=== PATIENT | male | born 1965 | race Caucasian/White ===

== ENCOUNTER 2024-06-21 10:28 | Inpatient (IN) | payer OTHER, SELFPAY ==
[2024-06-21] VITALS (8 sets, daily range): BP systolic 131–161; BP diastolic 78–116; PULSE 84–139; RESP 12–20; TEMP 36.5–37.1; O2SAT 93–98; BMI 30.9
--- NOTE | ~2024-06-21 | XR_ITS ---
EXAMINATION: XR CHEST CLINICAL INFORMATION: dyspnea COMPARISON: None available. TECHNIQUE: Frontal view of the chest was obtained. FINDINGS: Prominence of the interstitial markings. Cardiomediastinal silhouette is enlarged. No pneumothorax. No gross pleural effusion. Multilevel thoracic spondylosis no fully evaluated. Degenerative changes in the left shoulder. XR/XR chest 1V IMPRESSION: Pulmonary edema, mild in the correct clinical settings. Superimposed acute small airway disease cannot be excluded. Cardiomegaly versus pericardial effusion. Electronically signed by: Jacek Ivey MD 06/21/2024 12:42 PM EDT
--- NOTE | ~2024-06-21 | US_ITS ---
EXAMINATION: US LOWER EXTREMITY VEINS BILATERAL HISTORY: new onset Afib dyspnea swelling COMPARISON: There are no prior studies for comparison. TECHNIQUE: Duplex and color Doppler sonographic examination of the deep venous system of the bilateral lower extremities was performed. FINDINGS: The right common femoral, superficial femoral, and popliteal veins are patent demonstrating normal compressibility, spontaneous flow, and augmentation. There is a normal color and spectral Doppler waveform appearance of the visualized deep venous system above the knee. The posterior tibial and peroneal veins are patent. The left common femoral, superficial femoral, and popliteal veins are patent demonstrating normal compressibility, spontaneous flow, and augmentation. There is a normal color and spectral Doppler waveform appearance of the visualized deep venous system above the knee. The posterior tibial and peroneal veins are patent. US/US venous duplex LE BI IMPRESSION: No evidence of acute DVT in the bilateral lower extremities. Electronically signed by: Sonido Pastor MD 06/21/2024 01:29 PM EDT
--- NOTE | 2024-06-21 10:39 | ECG_ITS ---
Test Reason : SOB Blood Pressure : */* mmHG Vent. Rate : 121 BPM Atrial Rate : * BPM P-R Int : * ms QRS Dur : 148 ms QT Int : 318 ms P-R-T Axes : * 17 179 degrees QTcB Int : 451 ms Atrial fibrillation with rapid ventricular response Left bundle branch block Abnormal ECG No previous ECGs available Referred By: Generic ED Physician Electronically Signed By: Myles Willams
[2024-06-21 11:07] LABS: Hematocrit 47.4 % (42.0-52.0); Hemoglobin 16.5 g/dl (14.0-18.0); Mean Corpuscular HGB Conc 34.8 g/dl (31.0-36.0); Mean Corpuscular Hemoglobin 33.3 pg (27.0-33.0); Mean Corpuscular Volume 95.6 fL (80.0-98.0); Mean Platelet Volume 9.9 fL (9.4-12.4); Platelet Count 227 X10*3/uL (160-400); Red Blood Count 4.96 X10*6/uL (4.60-5.80); Red Cell Distribution Width 14.5 % (11.0-16.0); White Blood Count 8.2 X10*3/uL (4.8-10.8)
[2024-06-21 11:09] LABS: Prothrombin Time 12.1 SEC (10.9-12.4)
[2024-06-21 11:19] LABS: Alanine Aminotransferase 49 U/L (0-40); Albumin Level 4.1 g/dL (3.5-5.0); Alkaline Phosphatase 97 U/L (39-117); Anion Gap 13 (12-20); Aspartate Amino Transferase 42 U/L (5-37); Bilirubin Total 1.5 mg/dL (0.0-1.0); Blood Urea Nitrogen 19 mg/dL (9-16); Calcium 9.3 mg/dL (8.4-10.2); Carbon Dioxide 25 mmol/L (22-29); Chloride 104 mmol/L (96-108); Estimated Glomerular Filt Rate > 60; Glucose Random 172 mg/dL (60-115); Potassium 4.2 mmol/L (3.3-5.1); Sodium 138 mmol/L (135-145); Total Protein 7.3 g/dL (6.5-8.0)
[2024-06-21 11:26] LABS: Troponin-I High Sensitivity 91.3 ng/L (<3.5-35.0)
[2024-06-21] MEDS: Losartan Potassium 25 MG TABLET PO (11:31)
[2024-06-21] MEDS: Furosemide 40 MG/4 ML VIAL IVPUSH (11:32)
--- NOTE | 2024-06-21 11:42 | ED_ITS ---
HPI - SOB/Dyspnea General Chief Complaint: Dyspnea Stated Complaint: SOB sent from urgent care Time Seen by Provider: 06/21/24 10:54 Source: patient Mode of arrival: ambulatory Limitations: no limitations History of Present Illness ED Provider: REGINALD HARDY Narrative: 58 yo male with PMH of HTN has not taken any medications in 5+ years or seen a doctor in that time frame. He just quit smoking a week ago. He drinks heavily 3 days a week but no withdrawal symptoms or seizures. He smokes THC at parties but no other drugs. he notes last Tuesday he developed WOLFE and orthopnea he cannot lay flat. He denies any preceding URI, drug use, chest pain episode. He states he has never had this before. No recent travel or procedures. He had a normal stress test 10 years ago. He notes he just feels like he cannot breathe. MD elicited complaint: shortness of breath Onset (ago): day(s) (7) Context: other Timing: progressively worsening Severity: severe Exacerbating factors: lying flat and exertion Relieving factors: rest and upright position Associated symptoms: cough Treatment prior to arrival: none Related Data Allergies Allergy/AdvReac Type Severity Reaction Status Date / Time acetaminophen [From Percocet] Allergy Itching Verified 06/21/24 10:39 bee pollen [bee stings] Allergy Anaphylaxis Verified 06/21/24 10:39 oxycodone [From Percocet] Allergy Itching Verified 06/21/24 10:39 Review of Systems 2 Review of Systems: Constitutional : No Fever, No Chills ENT/Mouth : No sore throat, No Rhinorrhea, No Swallowing Difficulty Eyes: No Eye Pain, No Swelling, No Redness Cardiovascular : No Chest Pain, positive SOB, No Orthopnea, no Edema Respiratory : pos Cough, No Sputum, No Wheezing, positive dyspnea Gastrointestinal : No Nausea, No Vomiting, No Diarrhea, No abdominal Pain, No Hematochezia, No Melena Genitourinary : No Dysuria, No Urinary Frequency, No Hematuria Musculoskeletal : No joint pain, No Myalgias Skin : No Skin Lesions, No rash Neuro : No Weakness, No Numbness, No Dizziness, No Headache Psych : No Anxiety/Panic, No Depression All other systems reviewed and are negative PMFSH Past Medical History Attestation statement: The following information was validated with the patient. Medical History HTN (hypertension) Social History Social History (Updated 06/21/24 @ 11:47 by Luana Varghese DO) Alcohol intake: current Patient Tobacco Use Status: Former Tobacco user Advance Directives: No Advance Directives Information Provided: Yes Physical Exam 2 Vital Signs: Vital Signs: Last Vital Signs Temp 97.9 F 06/21/24 12:41 Pulse 115 H 06/21/24 12:41 Resp 18 06/21/24 12:41 BP 146/101 H 06/21/24 12:41 Pulse Ox 95 06/21/24 12:41 O2 Del Method Room Air 06/21/24 12:41 BMI result Body Mass Index 30.9 Appearance: Alert. Oriented X3. No acute distress. Eyes: Pupils equal, round and reactive to light. ENT: Pharynx normal. Neck: Normal inspection. Neck supple. + JVD CVS: Normal heart rate and rhythm. Pulses normal. Respiratory: No respiratory distress. Breath sounds crackles both bases Abdomen: Soft and nontender. Skin: Skin warm and dry. Normal skin color. Normal skin turgor. Extremities: No lower extremity edema. No calf ttp Neuro: Oriented X 3. No motor deficit. No sensory deficit. CN2-12 intact Medications Administered Discontinued Medications Generic Name Dose Route Start Last Admin Trade Name Ghanshyam PRN Reason Stop Dose Admin Furosemide 40 mg 06/21/24 11:23 06/21/24 11:32 Furosemide 40 Mg/4 Ml Vial IVPUSH 06/21/24 11:24 40 mg STAT STA Administration Protocol Losartan Potassium 25 mg 06/21/24 11:23 06/21/24 11:31 Losartan Potassium 25 Mg Tablet PO 06/21/24 11:24 25 mg ONCE ONE Administration Protocol Medical Decision Making Medical Decision Making MDM Narrative: 58 yo male with PMH of HTN does not take medications or follow with a doctor he is here tachycardic, hypertensive, irregular rhythm with wide complex - at this time he has crackles on exam and JVD I suspect he has a cardiomyopathy. This has been present for 1 week - he denies preceding chest pain or URI symptoms. I am going to obtain labs, CXR, start on IV lasix and consult Cardiology - anticipate admission. Differential Diagnosis Differential Diagnoses: The differential diagnosis associated with the presentation includes lyte abnormality, ischemic cardiomyopathy vs ETOH induced hx of heavy ETOH use will start on phenobarb Admission/Observation Consideration of admission/observation: Escalation of care including admission/observation considered admit for further work up diuresis Consult Healthcare Provider Management of the patient was discussed with: [employer] (Dr. Imer cannon - ECHO, losartan 25mg, IV 40mg lasix) Lab Data MDM Lab Attestation statement: I reviewed the patient's lab results. 06/21/24 10:55 06/21/24 10:55 Labs: Lab Results 06/21/24 06/21/24 06/21/24 Range/Units 10:55 11:28 12:38 WBC 8.2 (4.8-10.8) X10*3/uL RBC 4.96 (4.60-5.80) X10*6/uL Hgb 16.5 (14.0-18.0) g/dl Hct 47.4 (42.0-52.0) % MCV 95.6 (80.0-98.0) fL MCH 33.3 H (27.0-33.0) pg MCHC 34.8 (31.0-36.0) g/dl RDW 14.5 (11.0-16.0) % Plt Count 227 (160-400) X10*3/uL MPV 9.9 (9.4-12.4) fL Absolute Nucleated RBC 0.000 (0.0-0.012) X10*3/uL Nucleated RBC % (auto) 0.0 (0.0-0.2) /100WBC PT 12.1 (10.9-12.4) SEC INR 1.0 (0.9-1.1) Sodium 138 (135-145) mmol/L Potassium 4.2 (3.3-5.1) mmol/L Chloride 104 (96-108) mmol/L Carbon Dioxide 25 (22-29) mmol/L Anion Gap 13 (12-20) BUN 19 H (9-16) mg/dL Creatinine 1.11 (0.5-1.4) mg/dL Estim Creat Clear Calc 83.0 Estimated GFR > 60 Random Glucose 172 H (60-115) mg/dL Calcium 9.3 (8.4-10.2) mg/dL Total Bilirubin 1.5 H (0.0-1.0) mg/dL AST 42 H (5-37) U/L ALT 49 H (0-40) U/L Alkaline Phosphatase 97 (39-117) U/L Troponin I High Sens 91.3 H (<3.5-35.0) ng/L B-Natriuretic Peptide 742 H (<100) pg/mL Total Protein 7.3 (6.5-8.0) g/dL Albumin 4.1 (3.5-5.0) g/dL Urine Opiates Screen Not Detected (Not Detect) Ur Buprenorphine Scrn Not Detected (Not Detect) ng/mL Ur Oxycodone Screen Not Detected (Not Detect) ng/mL Urine Methadone Screen Not Detected (Not Detect) ng/mL Urine Fentanyl Screen Not Detected (Not Detect) Ur Barbiturates Screen Not Detected (Not Detect) Ur Phencyclidine Scrn Not Detected (Not Detect) Ur Amphetamines Screen Not Detected (Not Detect) U Benzodiazepines Scrn Not Detected (Not Detect) Urine Cocaine Screen Not Detected (Not Detect) U Marijuana (THC) Screen Not Detected (Not Detect) Ethyl Alcohol < 10 mg/dL Influenza Type A (PCR) NEGATIVE (Negative) Influenza Type B (PCR) NEGATIVE (Negative) RSV RNA Qual (PCR) NEGATIVE (Negative) SARS-CoV-2 RNA (RT-PCR) NEGATIVE (Negative) Independent Interpretation I performed an independent interpretation of an: EKG, Plain X-Ray (edema/cardiomegaly) and Ultrasound (no DVT) Interpretation: Rate: 121 Rhythm: afib [place]: left LBBB ST T wave : tall anterior t waves but neg Sgarbossa criteria, inverted t waves I and aVL LBBB pattern qTC: 451 prior studies: no prior The study has been interpreted contemporaneously by me. . Radiology Impression Discussion of test interpretation with radiology: I have reviewed the radiologist's reading. Critical Care Time Critical Care Time Critical Care Time: Yes Total Critical Care Time: 45 Attestation: stat cards consult, ECHO, IM phenobarb, admission I attest to this time spent taking care of the patient Discharge Plan Discharge Clinical Impression: New onset a-fib, Left bundle branch block (LBBB) Cardiomyopathy Qualifiers: Cardiomyopathy type: unspecified Qualified Code(s): I42.9 - Cardiomyopathy, unspecified Patient Disposition: Admitted As Inpatient Print Language: Citizen Of [place]
[2024-06-21 11:57] LABS: B Type Natriuretic Peptide 742 pg/mL (<100)
--- NOTE | 2024-06-21 12:00 | CA_ITS ---
Transthoracic Echocardiogram Patient (Last, First, Middle): Milind Jones, Gender: Male Date of : 1965 Age: 58 Procedure Date: 06/21/2024 Procedure Type: Transthoracic Echocardiogram Location: ER Height: 177. cm Weight: 97.52 kg BSA: 2.15 m2 Heart Rate: 70 bpm BP: 140 / 116 mmHg Farm Supervisor: JOSIAS Referring MD: Luana Varghese DO Symptoms: dyspnea, new LBBB Study Quality: Adequate ECG Rhythm: Atrial Fibrillation w RVR Conclusions: - Normal left ventricular cavity size. There is mildly increased left ventricular wall thickness. The left ventricular systolic function is severely decreased. The visually estimated ejection fraction is between 10-15%. - Mildly increased right ventricular cavity size. There is mildly decreased right ventricular systolic function. - The left atrium is moderately dilated. The right atrium is moderately dilated. - Significantly elevated right atrial pressure. Findings Procedure Information Contrast agent, definity, is being given per protocol without apparent complications. Left Ventricle Normal left ventricular cavity size. There is mildly increased left ventricular wall thickness. The left ventricular systolic function is severely decreased. The visually estimated ejection fraction is between 10 15%. There is severe global hypokinesis. There is paradoxical septal motion consistent with a left bundle branch block. Diastolic function is indeterminate on the basis of available data. Right Ventricle Mildly increased right ventricular cavity size. There is mildly decreased right ventricular systolic function. Atria The left atrium is moderately dilated. The right atrium is moderately dilated. Aortic Valve Normal aortic valve structure and function. There is no aortic valve stenosis. There is no aortic valve regurgitation. Mitral Valve The mitral valve appears normal. The anterior mitral leaflet has restricted mobility and the posterior mitral leaflet has restricted mobility. There is trace mitral valve regurgitation. There is no mitral valve stenosis. Pulmonic Valve The pulmonic valve is likely normal. There is no pulmonic valve regurgitation. Tricuspid Valve Normal tricuspid valve structure. There is trace tricuspid valve regurgitation. The right ventricular systolic pressure is 33 mmHg. Significantly elevated right atrial pressure. There is no evidence of pulmonary hypertension. Great Vessels All visible segments of the aorta are normal in size. The visualized portions of the pulmonary artery and branches are normal. Venous The inferior vena cava is dilated and collapses less than 50% with inspiration. Pericardium/Pleural There is no evidence of pericardial effusion. Prior Study Comparison No prior study available for comparison. Measurements 2D Linear Measurements IVSd: 1.17 0.6-0.9/0.6-1.0 cm LVIDd: 5.98 3.9-5.3/4.2-5.9 cm LVIDd Index: 2.78 2.4-3.2/2.2-3.1 cm/m2 LVIDs: 5.47 2.0-3.6 cm LVPWd: 1.19 0.7-1.1 cm LA Diam: 5.20 2.7-3.8/3.0-4.0 cm LAIDs Index: 2.42 1.5-2.3 cm/m2 LV Mass: 380.90 67-162/88-224 g LV Mass Index: 177.16 43-95/49-115 g/m2 LVOT Diam: 1.90 3.0+(-)1.3 cm 2D Systolic Function EF 4C: 5.75 >55% EF 2C: 21.70 >55% EF BiP: 13.20 >55% Mitral Valve MV Pk E: 0.91 MV Decel Time: 125.00 E'Lateral: 9.28 E'Medial: 5.51 E/E' Med: 16.50 E/E' Lat: 9.80 PHT: 36.00 MVA PHT: 6.11 Decel [place]: 7.33 Aortic Valve AoV Pk Srinivasa: 0.85 AoV Mn Srinivasa: 0.66 AoV VTI: 0.11 AoV Pk Grad: 3.00 Aov Mn Grad: 2.00 KELSEY Cont.VTI: 3.01 LVOT LVOT Pk Srinivasa: 0.89 LVOT Mn Srinivasa: 0.58 LVOT VTI: 0.12 LVOT Pk Grad: 3.00 LVOT Mn Grad: 2.00 LVOT Diam: 1.90 LVOT Area: 2.84 Diastolic Function MV Pk E: 0.91 E'Medial: 5.51 E/E' Med: 16.50 E' Laterial: 9.28 E/E' Lat: 9.80 Right Ventricle TAPSE (mm): 15.00 TVS' Srinivasa: 7.60 Tricuspid Valve TR Pk Srinivasa: 2.12 TR Pk Grad: 18.00 RA Press: 15.00 RVSP: 33.00 Great Vessels Aorta Sinus of Valsalva: 3.20 2.0-3.5 cm Ao Asc: 2.90 2.1-3.4 cm Ao Arch: 2.70 Pulmonary Valve PV Pk Srinivasa: 0.64 Peak PV Grad: 2.00 Updated in Other Vendor System with Status of Final Myles Willams MD electronically signed on 06/21/2024 6:59:24 PM with status of Final
[2024-06-21 12:08] LABS: Ethanol < 10 mg/dL
[2024-06-21 12:19] LABS: Influenza A PCR NEGATIVE (Negative); Influenza B PCR NEGATIVE (Negative); Resp Syncy Virus RNA Qual PCR NEGATIVE (Negative); SARS COV2 PCR INHOUSE NEGATIVE (Negative)
[2024-06-21 13:11] LABS: Amphetamine Screen Urine Not Detected (Not Detect); Barbiturates, Urine Not Detected (Not Detect); Benzodiazepines Screen Urine Not Detected (Not Detect); Buprenorphine Scr Not Detected (Not Detect); Cannabinoid Screen Urine Not Detected (Not Detect); Cocaine Screen Urine Not Detected (Not Detect); Fentanyl, urine Not Detected (Not Detect); Methadone Screen, Urine Not Detected (Not Detect); Opiate Screen Urine Not Detected (Not Detect); Oxycodone Screen Urine Not Detected (Not Detect); Phencyclidine Screen Urine Not Detected (Not Detect)
[2024-06-21] MEDS: Thiamine HCL 100 MG TABLET PO (13:36)
--- NOTE | 2024-06-21 13:48 | PC.NURSE ---
patient presented to the ED from urgent care with increased sob, patient has been non compliant with bp medications and medical care. patient is alert and oriented x4, ambulatory, bilat 18# placed. patient states that she drinks aprox 3-4 glasses of whiskey a day x3days a week, patient has not drank since tuesday, refused pheno injection, patient educated on symptoms of etoh withdrawal. patient initially hypertensive, patient now normotensive, patient remains in afib with rvr, rate 110-20s depending on activity. patient given urinal for urine output measuring. patient sitting up in recliner chair. resp even and unlabored.
--- NOTE | 2024-06-21 13:49 | P.CONCA_ITS ---
History of Present Illness History of Present Illness Date of Service: 06/21/24 Requesting physician: Luana Varghese Chief complaint: ADCHF Narrative: [age] year gentleman with acute decompensated congestive heart failure. We have been asked to see him for heart failure. He has background history of hypertension but has not been taking medications. He also has been drinking heavily 3 times a week. In his started noticing some shortness of breath with activities over the last few weeks and over the last week he had some orthopnea and PND like episodes. With these symptoms he presented to the ER. He is noticed to be in AFib with RVR and has left bundle- branch block present 2. Echocardiography was performed at bedside which I reviewed briefly but did show significant dyssynchrony of the septum and at least moderate LV dysfunction. He was given 40 of Lasix in the emergency department. He was also given losartan 25 mg. Denying any palpitations. No chest pain. Remote history of cocaine use but recently he has been smoking marijuana mostly. [facility] Past Medical History Medical History HTN (hypertension) Social History Social History (Updated 06/21/24 @ 11:47 by Luana Varghese DO) Alcohol intake: current Patient Tobacco Use Status: Former Tobacco user Advance Directives: No Advance Directives Information Provided: Yes Meds Allergies Allergy/AdvReac Type Severity Reaction Status Date / Time acetaminophen [From Percocet] Allergy Itching Verified 06/21/24 10:39 bee pollen [bee stings] Allergy Anaphylaxis Verified 06/21/24 10:39 oxycodone [From Percocet] Allergy Itching Verified 06/21/24 10:39 Active Medications: Current Medications Pharmacy Consult (Consult Rx Etoh Phenob Im/Po) 1 each MISCELLANE ONCE PRN; Protocol PRN Reason: Consult order Phenobarbital (Phenobarbital 15 Mg Tablet) 45 mg PO BID SHEA; Protocol Stop: 06/23/24 21:01 Phenobarbital (Phenobarbital 15 Mg Tablet) 15 mg PO BID SHEA; Protocol Stop: 06/25/24 21:01 Phenobarbital (Phenobarbital 15 Mg Tablet) 15 mg PO DAILY SHEA; Protocol Stop: 06/26/24 09:01 Phenobarbital Sodium (Phenobarbital Sodium 130 Mg/Ml Vial Im Q3hx2) 219 mg IM Q3H SHEA; Protocol Stop: 06/21/24 19:01 Physical Exam 2 Vital Signs: Vital Signs: Last Vital Signs Temp 97.9 F 06/21/24 12:41 Pulse 113 H 06/21/24 13:34 Resp 12 06/21/24 13:34 BP 140/90 H 06/21/24 13:34 Pulse Ox 95 06/21/24 13:34 O2 Del Method Room Air 06/21/24 13:34 BMI result Body Mass Index 30.9 GENERAL APPEARANCE: in no acute distress, pleasant. NECK: no carotid bruit, + jugular venous distention. SKIN: no suspicious lesions, warm and dry. HEART: no murmurs, irregular rate and rhythm. Tachycardia. LUNGS: Few crackles at bases.. ABDOMEN: soft, nontender. EXTREMITIES: no edema. PERIPHERAL PULSES: equal. NEUROLOGIC: No gross deficits, AAO X 3 Objective Labs and Meds 06/21/24 10:55 06/21/24 10:55 Lab results: Laboratory Results - last 24 hr 06/21/24 06/21/24 06/21/24 10:55 11:28 12:38 WBC 8.2 RBC 4.96 Hgb 16.5 Hct 47.4 MCV 95.6 MCH 33.3 H MCHC 34.8 RDW 14.5 Plt Count 227 MPV 9.9 Absolute Nucleated RBC 0.000 Nucleated RBC % (auto) 0.0 PT 12.1 INR 1.0 Sodium 138 Potassium 4.2 Chloride 104 Carbon Dioxide 25 Anion Gap 13 BUN 19 H Creatinine 1.11 Estim Creat Clear Calc 83.0 Estimated GFR > 60 Random Glucose 172 H Calcium 9.3 Total Bilirubin 1.5 H AST 42 H ALT 49 H Alkaline Phosphatase 97 Troponin I High Sens 91.3 H B-Natriuretic Peptide 742 H Total Protein 7.3 Albumin 4.1 Urine Opiates Screen Not Detected Ur Buprenorphine Scrn Not Detected Ur Oxycodone Screen Not Detected Urine Methadone Screen Not Detected Urine Fentanyl Screen Not Detected Ur Barbiturates Screen Not Detected Ur Phencyclidine Scrn Not Detected Ur Amphetamines Screen Not Detected U Benzodiazepines Scrn Not Detected Urine Cocaine Screen Not Detected U Marijuana (THC) Screen Not Detected Ethyl Alcohol < 10 Influenza Type A (PCR) NEGATIVE Influenza Type B (PCR) NEGATIVE RSV RNA Qual (PCR) NEGATIVE SARS-CoV-2 RNA (RT-PCR) NEGATIVE Imaging Radiologist's impression: Impressions Chest X-Ray 06/21/24 11:44 IMPRESSION: Pulmonary edema, mild in the correct clinical settings. Superimposed acute small airway disease cannot be excluded. Cardiomegaly versus pericardial effusion. Electronically signed by: Jacek Ivey MD 06/21/2024 12:42 PM EDT RP Venous Duplex 06/21/24 12:56 IMPRESSION: No evidence of acute DVT in the bilateral lower extremities. Electronically signed by: Sonido Pastor MD 06/21/2024 01:29 PM EDT RP Assessment and Plan (1) Cardiomyopathy: Qualifiers: Cardiomyopathy type: unspecified Qualified Code(s): I42.9 - Cardiomyopathy, unspecified Status: Acute (2) Left bundle branch block (LBBB): Status: Acute (3) New onset a-fib: Status: Acute Plan [age] year gentleman presenting with new onset acute decompensated congestive heart failure. Clinically volume overloaded. Blood pressure is also elevated. Start him on Lasix 40 mg daily. Add losartan 25 mg daily. Add spironolactone 25 mg daily. Avoid adding Jardiance or Farxiga currently as he may need LUDMILA cardioversion at some stage. Eliquis 5 mg twice a day. Complete abstinence from alcohol. Please do a drug screen on him. If clinically improving then please keep NPO after midnight for potential LUDMILA cardioversion tomorrow. Thank you for allowing me to participate in the care of your patient. Please feel free to contact me if you have any questions. Procedures Date of Service Date of Service: 06/21/24
--- NOTE | 2024-06-21 15:08 | P.HPHOSP_ITS ---
History of Present Illness Date of Service: 06/21/24 Attending physician on admission: Maggie Parkinson Chief Complaint: Alcohol withdrawal, elevated troponin. 58 yo M PMH of HTN(not on meds, did not see any doctor for long time) He just quit smoking a week ago. He drinks heavily 3 days a week but no withdrawal symptoms or seizures. He smokes THC at parties but no other drugs. he notes last Tuesday he developed WOLFE and orthopnea he cannot lay flat. He denies any preceding URI, drug use, chest pain episode. He states he has never had this before. No recent travel or procedures. He had a normal stress test 10 years ago. He notes he just feels like he cannot breathe. shortness of breath somewhat improving after receiving Lasix. Patient was also started on phenobarb protocol Lab imaging EKG reviewed: CBC BMP seems fine, LFTs mildly elevated, BNP 740 DVT studies: Bilateral lower extremity negative. Chest x-ray: Bilateral pulmonary edema EKG: AFib with RVR, QTC is 451ms Review of Systems 2 Review of Systems: As above. Yes all other systems are reviewed and are negative [facility] Medical History HTN (hypertension) Social History Household Members: Family Housing: House Alcohol intake: current Alcohol intake frequency: 3 or more drinks per day Alcohol type: hard liquor Patient Tobacco Use Status: Former Tobacco user Use of substances other than those prescribed or required for medical reasons: Yes Substance Use Type: Marijuana Advance Directives: No Advance Directives Information Provided: Yes Nutrition Risks: No Nutritional Risk service: No Meds Allergies Allergy/AdvReac Type Severity Reaction Status Date / Time acetaminophen [From Percocet] Allergy Itching Verified 06/21/24 10:39 bee pollen [bee stings] Allergy Anaphylaxis Verified 06/21/24 10:39 oxycodone [From Percocet] Allergy Itching Verified 06/21/24 10:39 Active Medications: Current Medications Apixaban (Apixaban 5 Mg Tablet) 10 mg PO BID [facility] Stop: 06/28/24 09:01 Apixaban (Apixaban 5 Mg Tablet) 5 mg PO BID [facility] Calcium Carbonate (Calcium Carbonate 750 Mg Tab.Chew) 750 mg PO Q4H PRN PRN Reason: Heartburn Furosemide (Furosemide 40 Mg/4 Ml Vial) 40 mg IVPUSH DAILY [facility]; Protocol Losartan Potassium (Losartan Potassium 25 Mg Tablet) 25 mg PO DAILY [facility]; Protocol Magnesium Hydroxide (Milk Of Magnesia 30 Ml Oral.Susp) 30 ml PO DAILY PRN PRN Reason: Constipation Melatonin (Melatonin 3 Mg Tablet) 6 mg PO BEDTIME PRN PRN Reason: Insomnia Pharmacy Consult (Consult Rx Etoh Phenob Im/Po) 1 each MISCELLANE ONCE PRN; Protocol PRN Reason: Consult order Phenobarbital (Phenobarbital 15 Mg Tablet) 45 mg PO BID [facility]; Protocol Stop: 06/23/24 21:01 Phenobarbital (Phenobarbital 15 Mg Tablet) 15 mg PO BID [facility]; Protocol Stop: 06/25/24 21:01 Phenobarbital (Phenobarbital 15 Mg Tablet) 15 mg PO DAILY [facility]; Protocol Stop: 06/26/24 09:01 Phenobarbital Sodium (Phenobarbital Sodium 130 Mg/Ml Vial Im Q3hx2) 219 mg IM Q3H [facility]A; Protocol Stop: 06/21/24 19:01 Sodium Chloride (0.9 % Sodium Chloride Flush 3 Ml Syringe) 3 ml IVFLUSH QSHIFT [facility] Home Medications ?Medication ?Instructions ?Recorded ?Confirmed ?Last Taken ?Type acetaminophen 500 mg tablet 500 - 1,000 mg PO Q6H PRN Pain 06/21/24 06/21/24 Unknown History ibuprofen 200 mg tablet 200 - 400 mg PO Q6H PRN Pain 06/21/24 06/21/24 Unknown History melatonin 10 mg tablet 10 mg PO BEDTIME PRN Sleep 06/21/24 06/21/24 Unknown History multivitamin 1 tab PO DAILY 06/21/24 06/21/24 06/21/24 History Physical Exam 2 Vital Signs and Narrative: Vital Signs: Last Vital Signs Temp 97.9 F 06/21/24 12:41 Pulse 113 H 06/21/24 13:34 Resp 12 06/21/24 13:34 BP 140/90 H 06/21/24 13:34 Pulse Ox 95 06/21/24 13:34 O2 Del Method Room Air 06/21/24 13:34 BMI result Body Mass Index 30.9 Appearance: Alert.? Oriented X3.? cvs: irregular rythem, [id number] . res: air entry improving,has mild rales. abd: no rebound or guarding ,nt, bs present. ext pulses present , no cyanosis. neuro: axo3 , nonfocal. Results Labs 06/21/24 10:55 06/22/24 09:13 Labs: Laboratory Results - last 24 hr 06/21/24 06/21/24 06/21/24 10:55 11:28 12:38 MCV 95.6 MCH 33.3 H MCHC 34.8 RDW 14.5 Plt Count 227 MPV 9.9 Absolute Nucleated RBC 0.000 Nucleated RBC % (auto) 0.0 PT 12.1 INR 1.0 Anion Gap 13 Estim Creat Clear Calc 83.0 Estimated GFR > 60 Random Glucose 172 H Calcium 9.3 Total Bilirubin 1.5 H AST 42 H ALT 49 H Alkaline Phosphatase 97 B-Natriuretic Peptide 742 H Total Protein 7.3 Albumin 4.1 Urine Opiates Screen Not Detected Ur Buprenorphine Scrn Not Detected Ur Oxycodone Screen Not Detected Urine Methadone Screen Not Detected Urine Fentanyl Screen Not Detected Ur Barbiturates Screen Not Detected Ur Phencyclidine Scrn Not Detected Ur Amphetamines Screen Not Detected U Benzodiazepines Scrn Not Detected Urine Cocaine Screen Not Detected U Marijuana (THC) Screen Not Detected Ethyl Alcohol < 10 Influenza Type A (PCR) NEGATIVE Influenza Type B (PCR) NEGATIVE RSV RNA Qual (PCR) NEGATIVE SARS-CoV-2 RNA (RT-PCR) NEGATIVE Imaging Radiologist's Impressions: Impressions Chest X-Ray 06/21/24 11:44 IMPRESSION: Pulmonary edema, mild in the correct clinical settings. Superimposed acute small airway disease cannot be excluded. Cardiomegaly versus pericardial effusion. Electronically signed by: Jacek Ivey MD 06/21/2024 12:42 PM EDT RP Venous Duplex 06/21/24 12:56 IMPRESSION: No evidence of acute DVT in the bilateral lower extremities. Electronically signed by: Sonido Pastor MD 06/21/2024 01:29 PM EDT RP Assessment and Plan (1) Cardiomyopathy: Qualifiers: Cardiomyopathy type: unspecified Qualified Code(s): I42.9 - Cardiomyopathy, unspecified Status: Acute (2) New onset a-fib: Status: Acute Plan 58-year-old male came to the hospital with shortness of breath, found to have CHF, and AFib with a RVR CHfetiology unclear Echo i/o neg 2.3 liter IV Lasix, entresto ,jardiance ,eliquis monitor I&O, daily weights AFib possible PAF:hr flactuates-given iv metoprolol hr seems improving moniter on tele eliquis,coreg alcohol withdrawals on phenobarb protocol, thiamine folic acid ongoing need:CHf,afib with rvr-need tele monitering ,ciwa scale , i/o and renal function electrolytes Quality Stroke Does the patient have a stroke diagnosis?: No VTE Prior VTE?: No VTE Risk Level:: Medical - moderate - high VTE Device Contraindication: N/A - Device Ordered VTE Drug Contraindication: N/A - Med Ordered
--- NOTE | 2024-06-21 15:40 | PHA.MEDREC ---
Pharmacy Consult ? Medication Reconciliation Pharmacy has completed the medication reconciliation. Outcomes Analyst spoke with patient regarding home medications, he stated he takes a multivitamin, melatonin, and alternates tylenol and ibuprofen 1-2 tabs q6h as needed for pain.
[2024-06-21] MEDS: Spironolactone 25 MG TABLET PO (16:51)
--- NOTE | 2024-06-21 18:55 | PC.NURSE ---
this rn assumed care of pt, pt a&ox4, respirations even and unlabored. pt sitting in recliner with no complaints. pt vss. pt refusing phenobarb at this time, provider aware. CIWA=0
[2024-06-21] MEDS: Apixaban 5 MG TABLET 10 MG PO (20:55)
[2024-06-21] MEDS: Melatonin 3 MG TABLET 6 MG PO (21:01)
--- NOTE | 2024-06-21 21:01 | PC.NURSE ---
pt medicated per mar, tolerated whole well with water.
[2024-06-22] VITALS (11 sets, daily range): BP systolic 129–147; BP diastolic 88–101; PULSE 83–95; RESP 16–18; TEMP 36.2–36.8; O2SAT 94–97; BMI 29.9
--- NOTE | 2024-06-22 06:41 | PC.NURSE ---
pt placed into hospital bed for comfort. offers no complaints at this time.
[2024-06-22] MEDS: Losartan Potassium 25 MG TABLET PO (08:06)
[2024-06-22] MEDS: Multivitamin TABLET 1 TAB PO (08:07)
[2024-06-22] MEDS: Spironolactone 25 MG TABLET PO (08:07)
[2024-06-22] MEDS: Apixaban 5 MG TABLET 10 MG PO (08:07)
[2024-06-22] MEDS: Furosemide 40 MG/4 ML VIAL IVPUSH (08:08)
--- NOTE | 2024-06-22 08:26 | HO.PM.IMPN ---
Subjective Subjective Date of Service: 06/22/24 Interval History: chf ,alcohol withdrawals Review of Systems Review of Systems: Yes all other systems are reviewed and are negative Physical Exam Vital Signs: Vital Signs: Last Vital Signs Temp 97.6 F 06/22/24 08:22 Pulse 95 06/22/24 08:22 Resp 18 06/22/24 08:22 BP 129/101 H 06/22/24 08:22 Pulse Ox 97 06/22/24 08:22 O2 Del Method Room Air 06/22/24 08:22 BMI result Body Mass Index 29.9 Objective Data Active Medications Apixaban (Apixaban 5 Mg Tablet) 10 mg PO BID [facility] Stop: 06/28/24 20:59 Last Admin: 06/22/24 08:07 Dose: 10 mg Documented By: CHIKIS Calcium Carbonate (Calcium Carbonate 750 Mg Tab.Chew) 750 mg PO Q4H PRN PRN Reason: Heartburn Furosemide (Furosemide 40 Mg/4 Ml Vial) 40 mg IVPUSH DAILY [facility]; Protocol Last Admin: 06/22/24 08:08 Dose: 40 mg Documented By: CHIKIS Losartan Potassium (Losartan Potassium 25 Mg Tablet) 25 mg PO DAILY [facility]; Protocol Last Admin: 06/22/24 08:06 Dose: 25 mg Documented By: CHIKIS Magnesium Hydroxide (Milk Of Magnesia 30 Ml Oral.Susp) 30 ml PO DAILY PRN PRN Reason: Constipation Melatonin (Melatonin 3 Mg Tablet) 6 mg PO BEDTIME PRN PRN Reason: Insomnia Last Admin: 06/21/24 21:01 Dose: 6 mg Documented By: ROSA ELENA Multivitamins/Vitamin C (Multivitamin Tablet) 1 tab PO DAILY [facility] Last Admin: 06/22/24 08:07 Dose: 1 tab Documented By: CHIKIS Pharmacy Consult (Consult Rx Etoh Phenob Im/Po) 1 each MISCELLANE ONCE PRN; Protocol PRN Reason: Consult order Phenobarbital (Phenobarbital 15 Mg Tablet) 45 mg PO BID [facility]; Protocol Stop: 06/23/24 21:01 Phenobarbital (Phenobarbital 15 Mg Tablet) 15 mg PO BID [facility]; Protocol Stop: 06/25/24 21:01 Phenobarbital (Phenobarbital 15 Mg Tablet) 15 mg PO DAILY [facility]; Protocol Stop: 06/26/24 09:01 Sodium Chloride (0.9 % Sodium Chloride Flush 3 Ml Syringe) 3 ml IVFLUSH QSHIFT [facility] Last Admin: 06/22/24 01:07 Dose: Not Given Documented By: ROSA ELENA Non-Admin Reason: Patient Asleep Spironolactone (Spironolactone 25 Mg Tablet) 25 mg PO DAILY [facility]; Protocol Last Admin: 06/22/24 08:07 Dose: 25 mg Documented By: CHIKIS Labs 06/21/24 10:55 06/22/24 09:13 Labs: Laboratory Results - last 24 hr 06/21/24 06/21/24 06/21/24 10:55 11:28 12:38 MCV 95.6 MCH 33.3 H MCHC 34.8 RDW 14.5 Plt Count 227 MPV 9.9 Absolute Nucleated RBC 0.000 Nucleated RBC % (auto) 0.0 PT 12.1 INR 1.0 Anion Gap 13 Estim Creat Clear Calc 83.0 Estimated GFR > 60 Random Glucose 172 H Calcium 9.3 Total Bilirubin 1.5 H AST 42 H ALT 49 H Alkaline Phosphatase 97 B-Natriuretic Peptide 742 H Total Protein 7.3 Albumin 4.1 Urine Opiates Screen Not Detected Ur Buprenorphine Scrn Not Detected Ur Oxycodone Screen Not Detected Urine Methadone Screen Not Detected Urine Fentanyl Screen Not Detected Ur Barbiturates Screen Not Detected Ur Phencyclidine Scrn Not Detected Ur Amphetamines Screen Not Detected U Benzodiazepines Scrn Not Detected Urine Cocaine Screen Not Detected U Marijuana (THC) Screen Not Detected Ethyl Alcohol < 10 Influenza Type A (PCR) NEGATIVE Influenza Type B (PCR) NEGATIVE RSV RNA Qual (PCR) NEGATIVE SARS-CoV-2 RNA (RT-PCR) NEGATIVE Assessment and Plan (1) Cardiomyopathy: Status: Acute (2) New onset a-fib: Status: Acute Plan 58-year-old male came to the hospital with shortness of breath, found to have CHF, and AFib with a RVR CHfetiology unclear Echo i/o neg 2.3 liter IV Lasix, entresto ,jardiance ,eliquis monitor I&O, daily weights AFib possible PAF:hr flactuates-given iv metoprolol hr seems improving moniter on tele eliquis,coreg alcohol withdrawals on phenobarb protocol, thiamine folic acid ongoing need:CHf,afib with rvr-need tele monitering ,ciwa scale , i/o and renal function electrolytes Quality Stroke Does the patient have a stroke diagnosis?: No VTE Prior VTE?: No VTE Risk Level:: Medical - moderate - high VTE Device Contraindication: N/A - Device Ordered VTE Drug Contraindication: N/A - Med Ordered
[2024-06-22] MEDS: 0.9 % Sodium Chloride Flush 3 ML SYRINGE IVFLUSH ×2 (09:12→19:53)
--- NOTE | 2024-06-22 09:15 | MHC.CM.PN ---
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 PT VERIFIES HE HAS NOT SEEN DR. COOK IN YEARS AND PROVIDED W/[facility] PROVIDER LIST, PT EDUCATED ON AND WOULD LIKE TO COMPLETE A HCP HOWEVER WILL VERIFY HIS SISTER GARRY'S INFORMATION AND CM WILL FOLLOW-UP W/PT LATER IN SHIFT.
[2024-06-22 09:36] LABS: Anion Gap 13 (12-20); Blood Urea Nitrogen 16 mg/dL (9-16); Calcium 9.2 mg/dL (8.4-10.2); Carbon Dioxide 24 mmol/L (22-29); Chloride 104 mmol/L (96-108); Creatinine Clr Calc Pharmacy 89.7; Estimated Glomerular Filt Rate > 60; Glucose Random 136 mg/dL (60-115); Potassium 4.1 mmol/L (3.3-5.1); Sodium 137 mmol/L (135-145)
[2024-06-22 09:42] LABS: B Type Natriuretic Peptide 649 pg/mL (<100)
--- NOTE | 2024-06-22 11:44 | PM.PNCARD ---
Subjective Subjective Date of Service: 06/22/24 Interval history: Seen examined at bedside. Clinically improving. No orthopnea. Physical Exam Vital Signs: Last Vital Signs Temp 97.2 F 06/22/24 10:54 Pulse 83 06/22/24 10:54 Resp 18 06/22/24 10:54 BP 138/91 H 06/22/24 10:54 Pulse Ox 94 06/22/24 10:54 O2 Del Method Room Air 06/22/24 10:54 BMI result Body Mass Index 29.9 GENERAL APPEARANCE: in no acute distress, pleasant. NECK: no carotid bruit, no jugular venous distention. SKIN: no suspicious lesions, warm and dry. HEART: no murmurs, irregular rate and rhythm. LUNGS: Clear to auscultation bilaterally. ABDOMEN: soft, nontender. EXTREMITIES: no edema. PERIPHERAL PULSES: equal. NEUROLOGIC: No gross deficits, AAO X 3 Objective Labs and Meds 06/21/24 10:55 06/22/24 09:13 Lab results: Laboratory Results - last 24 hr 06/21/24 06/21/24 06/21/24 10:55 11:28 12:38 Sodium Potassium Chloride Carbon Dioxide Anion Gap BUN Creatinine Estim Creat Clear Calc Estimated GFR Random Glucose Calcium B-Natriuretic Peptide 742 H Urine Opiates Screen Not Detected Ur Buprenorphine Scrn Not Detected Ur Oxycodone Screen Not Detected Urine Methadone Screen Not Detected Urine Fentanyl Screen Not Detected Ur Barbiturates Screen Not Detected Ur Phencyclidine Scrn Not Detected Ur Amphetamines Screen Not Detected U Benzodiazepines Scrn Not Detected Urine Cocaine Screen Not Detected U Marijuana (THC) Screen Not Detected Ethyl Alcohol < 10 Influenza Type A (PCR) NEGATIVE Influenza Type B (PCR) NEGATIVE RSV RNA Qual (PCR) NEGATIVE SARS-CoV-2 RNA (RT-PCR) NEGATIVE 06/22/24 09:13 Sodium 137 Potassium 4.1 Chloride 104 Carbon Dioxide 24 Anion Gap 13 BUN 16 Creatinine 1.01 Estim Creat Clear Calc 89.7 Estimated GFR > 60 Random Glucose 136 H Calcium 9.2 B-Natriuretic Peptide 649 H Urine Opiates Screen Ur Buprenorphine Scrn Ur Oxycodone Screen Urine Methadone Screen Urine Fentanyl Screen Ur Barbiturates Screen Ur Phencyclidine Scrn Ur Amphetamines Screen U Benzodiazepines Scrn Urine Cocaine Screen U Marijuana (THC) Screen Ethyl Alcohol Influenza Type A (PCR) Influenza Type B (PCR) RSV RNA Qual (PCR) SARS-CoV-2 RNA (RT-PCR) Imaging Radiologist's impression: Impressions Chest X-Ray 06/21/24 11:44 IMPRESSION: Pulmonary edema, mild in the correct clinical settings. Superimposed acute small airway disease cannot be excluded. Cardiomegaly versus pericardial effusion. Electronically signed by: Jacek Ivey MD 06/21/2024 12:42 PM EDT RP Venous Duplex 06/21/24 12:56 IMPRESSION: No evidence of acute DVT in the bilateral lower extremities. Electronically signed by: Sonido Pastor MD 06/21/2024 01:29 PM EDT RP Progress Note: A&P Assessment and plan (1) Cardiomyopathy: Status: Acute (2) Left bundle branch block (LBBB): Status: Acute (3) New onset a-fib: Status: Acute Plan [age] year gentleman with alcoholism, uncontrolled hypertension, atrial fibrillation-new onset and left bundle-branch block presenting with congestive heart failure. Severe cardiomyopathy on echocardiography. EF of 10-15%. Diuresed and he had significant improvement. His heart rate is slower after diuresis. Adding carvedilol 3.125 mg twice a day. Can changing losartan to Entresto. Continue spironolactone. Add Jardiance. My plan was to do LUDMILA cardioversion but he ate today and we will plan cardioversion in few weeks as outpatient. Complete abstinence from alcohol. 2 g salt intake. He understands everything very well. Thank you for allowing me to participate in the care of your patient. Please feel free to contact me if you have any questions. Time Spent With Patient Time: Total time managing care of this patient today ____ minutes. Procedures Date of Service Date of Service: 06/22/24
[2024-06-22] MEDS: Empagliflozin 10 MG TABLET PO (12:03)
[2024-06-22] MEDS: carvediloL 3.125 MG TABLET PO ×2 (12:03→19:52)
[2024-06-22] MEDS: Metoprolol Tartrate 5 MG/5 ML VIAL 2.5 MG IVPUSH (13:38)
[2024-06-22] MEDS: Apixaban 5 MG TABLET PO (19:52)
[2024-06-22] MEDS: Sacubitril/Valsartan 24/26 1 TAB TABLET PO (19:53)
[2024-06-23 04:00] VITALS: BP 131/94; PULSE 79; RESP 18; TEMP 36.6; O2SAT 96
[2024-06-23 07:20] VITALS: BP 122/97; PULSE 88; RESP 18; TEMP 36.5; O2SAT 96
[2024-06-23 07:37] LABS: B Type Natriuretic Peptide 502 pg/mL (<100)
[2024-06-23 07:54] LABS: Anion Gap 14 (12-20); Blood Urea Nitrogen 17 mg/dL (9-16); Calcium 9.5 mg/dL (8.4-10.2); Carbon Dioxide 30 mmol/L (22-29); Chloride 101 mmol/L (96-108); Creatinine Clr Calc Pharmacy 75.5; Estimated Glomerular Filt Rate > 60; Glucose Random 90 mg/dL (60-115); Potassium 5.3 mmol/L (3.3-5.1); Sodium 140 mmol/L (135-145)
[2024-06-23] MEDS: Sacubitril/Valsartan 24/26 1 TAB TABLET PO (08:38)
[2024-06-23] MEDS: carvediloL 3.125 MG TABLET PO (08:38)
[2024-06-23] MEDS: Apixaban 5 MG TABLET PO (08:38)
[2024-06-23] MEDS: Sodium Zirconium Cyclosilicate 5 GM POWD.PACK PO (08:38)
[2024-06-23] MEDS: Multivitamin TABLET 1 TAB PO (08:38)
[2024-06-23] MEDS: Empagliflozin 10 MG TABLET PO (08:38)
[2024-06-23] MEDS: 0.9 % Sodium Chloride Flush 3 ML SYRINGE IVFLUSH (08:39)
--- NOTE | 2024-06-23 09:35 | PM.PNCARD ---
Subjective Subjective Date of Service: 06/23/24 Interval history: Seen examined at bedside. Potassium 5.3 today. He ate banana and drank orange juice yesterday. He was on spironolactone which was discontinued today morning and he was given some Lokelma. Overall doing well. He has some mild cough this morning but has no fever and normal appetite. Physical Exam Vital Signs: Last Vital Signs Temp 97.7 F 06/23/24 07:20 Pulse 88 06/23/24 07:20 Resp 18 06/23/24 07:20 BP 122/97 H 06/23/24 07:20 Pulse Ox 96 06/23/24 07:20 O2 Del Method Room Air 06/23/24 07:20 BMI result Body Mass Index 29.9 GENERAL APPEARANCE: in no acute distress, pleasant. NECK: no carotid bruit, no jugular venous distention. SKIN: no suspicious lesions, warm and dry. HEART: no murmurs, irregular rate and rhythm. LUNGS: Clear to auscultation bilaterally. ABDOMEN: soft, nontender. EXTREMITIES: no edema. PERIPHERAL PULSES: equal. NEUROLOGIC: No gross deficits, AAO X 3 Objective Labs and Meds 06/21/24 10:55 06/23/24 06:01 Lab results: Laboratory Results - last 24 hr 06/22/24 06/23/24 09:13 06:01 Sodium 137 140 Potassium 4.1 5.3 H D Chloride 104 101 Carbon Dioxide 24 30 H Anion Gap 13 14 BUN 16 17 H Creatinine 1.01 1.20 Estim Creat Clear Calc 89.7 75.5 Estimated GFR > 60 > 60 Random Glucose 136 H 90 Calcium 9.2 9.5 B-Natriuretic Peptide 649 H 502 H Progress Note: A&P Assessment and plan (1) Cardiomyopathy: Status: Acute (2) New onset a-fib: Status: Acute (3) Rate-related bundle branch block: Status: Acute Plan 58-year-old gentleman with alcoholism, uncontrolled hypertension, atrial fibrillation-new onset and left bundle-branch block (telemetry has shown that when his heart rate is slowed down he is in a narrow complex rhythm. This is rate related left bundle-branch block and unlikely to be cause for his cardiomyopathy) presenting with congestive heart failure. Severe cardiomyopathy on echocardiography. EF of 10-15%. Diuresed and he had significant improvement. His heart rate is slower after diuresis. Added carvedilol 3.125 mg twice a day. He is on losartan and Jardiance. Potassium 5.3 today and he was given Lokelma. He was on spironolactone which has been held. I think this is likely dietary because he drank orange juice and ate and banana. I have advised him to search on his on about diets which has high potassium and do not use them regularly. We will plan cardioversion in 4 weeks. Complete abstinence from alcohol. 2 g salt intake. He understands everything very well. Thank you for allowing me to participate in the care of your patient. Please feel free to contact me if you have any questions. Time Spent With Patient Time: Total time managing care of this patient today ____ minutes. Progress Note: Quality Stroke Does the patient have a stroke diagnosis?: No Procedures Date of Service Date of Service: 06/23/24
[2024-06-23 10:06] LABS: Potassium 4.1 mmol/L (3.3-5.1)
[2024-06-23 11:46] VITALS: BP 122/89; PULSE 88; RESP 18; TEMP 36.4; O2SAT 96
--- NOTE | 2024-06-23 12:12 | MHC.CM.PN ---
PT WILL DC HOME WITH NO SERVICES VIA SELF TRANSPORT
--- NOTE | 2024-06-23 12:23 | PM.DS ---
DS: Providers Provider Date of Service: 06/23/24 Date of admission: 06/21/24 14:42 Date of discharge: 06/23/24 Primary care physician: Silverio Chand MD Consults: 06/21/24 12:18 Consult to Cardiology Stat Consulting Provider: [facility] [place] [facility] Reason for consultation: cardiomyopathy Has provider been notified: Yes Attending physician on discharge: Maggie Parkinson Discharging clinician: Maggie Parkinson DS: Diagnosis Discharge Diagnosis (1) Cardiomyopathy: Status: Acute (2) New onset a-fib: Status: Acute (3) Rate-related bundle branch block: Status: Acute DS: Summary Hospital Course Hospital Course: HPI:58 yo M PMH of HTN(not on meds, did not see any doctor for long time) He just quit smoking a week ago. He drinks heavily 3 days a week but no withdrawal symptoms or seizures. He smokes THC at parties but no other drugs. he notes last Tuesday he developed WOLFE and orthopnea he cannot lay flat. He denies any preceding URI, drug use, chest pain episode. He states he has never had this before. No recent travel or procedures. He had a normal stress test 10 years ago. He notes he just feels like he cannot breathe. shortness of breath somewhat improving after receiving Lasix. Patient was also started on phenobarb protocol Lab imaging EKG reviewed: CBC BMP seems fine, LFTs mildly elevated, BNP 740 DVT studies: Bilateral lower extremity negative. Chest x-ray: Bilateral pulmonary edema EKG: AFib with RVR, QTC is 451ms. Hospital course: Patient admitted for alcohol withdrawal, possible CHF with reduced EF/cardiomyopathy, AFib with RVR: Patient was started on IV diuretics, rate control medications as well as phenobarb protocol for alcohol withdrawal. Patient seems to be improved with the above supportive care, heart rate seems more better,diursed well and seems euvolemic. Discussed with the Cardiology mild hyperkalemia probably related to spironolactone which is discontinued. Patient was started on Entresto, Jardiance, apixaban for AFib and Coreg. plan: coreg 3.125 mg po bid,Jardiance 10mg po daily,entresto 1 tab po bid,apixiban 5 mg po bid,lasix 40 mg daily moniter bmp closely CHF education given-if gains weight 2 lb or more in a week-will need outpatient Lasix dosing assessment with PCP. Consider Follow-up with cardiology outpatient. Above management discussed with the patient in detail length he understand and in agreement with the above plan, time spent 50 minutes and 50% time spent on counseling. Time Attestation Total time managing care of this patient today: 40 mintues. Discharge Coordination Time (in mins): 40 min Quality: Safe Use of Opioids Does Pt have an Active Cancer Diagnosis on the Problem List?: No Quality: Stroke Does the patient have a stroke diagnosis?: No Physical Exam Vital Signs: Vital Signs: Last Vital Signs Temp 97.6 F 06/23/24 11:46 Pulse 88 06/23/24 11:46 Resp 18 06/23/24 11:46 BP 122/89 06/23/24 11:46 Pulse Ox 96 06/23/24 11:46 O2 Del Method Room Air 06/23/24 11:46 BMI result Body Mass Index 29.9 Appearance: Alert.? Oriented X3.? cvs: irregular rythem, [id number] . res: air entry fair , no rales abd: no rebound or guarding ,nt, bs present. ext pulses present , no cyanosis. neuro: axo3 , nonfocal. DS: Data Data Completed and Pending Labs on day of discharge: Laboratory Results - last 24 hr 06/23/24 06/23/24 06:01 09:48 Sodium 140 Potassium 5.3 H D 4.1 D Chloride 101 Carbon Dioxide 30 H Anion Gap 14 BUN 17 H Creatinine 1.20 Estim Creat Clear Calc 75.5 Estimated GFR > 60 Random Glucose 90 Calcium 9.5 B-Natriuretic Peptide 502 H Imaging Chest x-ray: Radiologist's impression: ITS Impressions Chest X-Ray 06/21/24 11:44 IMPRESSION: Pulmonary edema, mild in the correct clinical settings. Superimposed acute small airway disease cannot be excluded. Cardiomegaly versus pericardial effusion. Electronically signed by: Jacek Ivey MD 06/21/2024 12:42 PM EDT RP Venous Duplex 06/21/24 12:56 IMPRESSION: No evidence of acute DVT in the bilateral lower extremities. Electronically signed by: Sonido Pastor MD 06/21/2024 01:29 PM EDT RP Discharge Plan Discharge Anticipated Discharge Date/Time: 06/23/24 11:56 Patient Disposition: Home, Self-Care Discharge Diagnosis: afib rvr, cmp Referrals: Name,MD Silverio [Primary Care Provider] - 1 Week Discharge Medications: New Eliquis 5 mg Tablet 5 mg PO BID Qty: 180 0RF carvedilol 3.125 mg Tablet 3.125 mg PO BID Qty: 180 0RF Protocol: Hold for SBP/HR < HOLD for SBP < : 90 HOLD for HR < : 60 Entresto 24-26 mg Tablet 1 tab PO BID Qty: 180 0RF Protocol: Hold for SBP< HOLD for SBP < : 90 Jardiance 10 mg Tablet 10 mg PO DAILY Qty: 90 0RF furosemide [Lasix] 40 mg tablet 40 mg PO DAILY Qty: 90 0RF Continued multivitamin Tablet 1 tab PO DAILY acetaminophen 500 mg Tablet 500 - 1,000 mg PO Q6H PRN (Reason: Pain) melatonin 10 mg Tablet 10 mg PO BEDTIME PRN (Reason: Sleep) Discontinued ibuprofen 200 mg Tablet 200 - 400 mg PO Q6H PRN (Reason: Pain) Discharge Orders: Discharge Order (Routine); Ordered 06/23/24 Ordered By: Maggie Parkinson Diet: Advance to usual diet Activity on Discharge: As tolerated Stand Alone Forms: Patient Portal Discharge page Print Language: Estonian Other Ambulatory Orders: Basic Metabolic Panel (Routine) Timeframe: 1 Week Facility: [facility] - Location: Laboratory Ordered By: Maggie Parkinson B Type Natriuretic Peptide (Routine) Timeframe: 1 Week Facility: [facility] - Location: Laboratory Ordered By: Maggie Parkinson Care Plan Goals: Patient admitted for alcohol withdrawal, possible CHF with reduced EF/cardiomyopathy, AFib with RVR: Patient was started on IV diuretics, rate control medications as well as phenobarb protocol for alcohol withdrawal. Patient seems to be improved with the above supportive care, heart rate seems more better, seems euvolemic. Discussed with the Cardiology mild hyperkalemia probably related to spironolactone which is discontinued. Repeat potassium level seems fine. Patient was started on Entresto, Jardiance, apixaban for AFib and Coreg. Health Concerns: coreg 3.125 mg po bid. Jardiance 10mg po daily. entresto 1 tab po bid. apixiban 5 mg po bid. lasix 40 mg daily moniter bmp closely CHF education given-if gains weight 2 lb or more in a week-will need outpatient Lasix dosing assessment with PCP. Cardiology may arrange their own appointment. Plan of Treatment: as above. Assessment: as above.
== END 2024-06-23 15:00 | disposition home or self-care (01) | DRG 201 ==
LOC: HO.ED 13:50 → HO.EDOVER 14:43 → HO.IMC 06-22 07:40
PROVIDERS: Admitting Provider Internal Medicine; Emergency Provider Emergency Medicine; Visit Provider Internal Medicine
DX: I48.0 Paroxysmal atrial fibrillation (principal); I11.0 Hypertensive heart disease with heart failure; I50.9 Heart failure, unspecified; I44.7 Left bundle-branch block, unspecified; Z20.822 Contact with and (suspected) exposure to COVID-19; Z87.891 Personal history of nicotine dependence; Z79.899 Other long term (current) drug therapy
CPT/HCPCS: 0241U; 36415; 71045; 80048; 80053; 80307; 83880; 84132; 84484; 85027; 85610; 93005; 93306; 93970; 99285; J1940; Q9957

== ENCOUNTER → 2024-06-21 11:27 | Outpatient (BNV) | payer OTHER, SELFPAY | PROVIDERS: Emergency Provider Emergency Medicine; PCP Internal Medicine Geriatric Medicine; Visit Provider Internal Medicine Cardiovascular Disease | DX: I42.9 Cardiomyopathy, unspecified (principal); I48.91 Unspecified atrial fibrillation; I45.4 Nonspecific intraventricular block | CPT/HCPCS: 99233 ==

== ENCOUNTER → 2024-06-21 11:44 | Outpatient (BNV) | payer OTHER, SELFPAY | PROVIDERS: Emergency Provider Emergency Medicine; PCP Internal Medicine Geriatric Medicine; Visit Provider Radiology Diagnostic Radiology | DX: R22.40 Localized swelling, mass and lump, unspecified lower limb (principal); I48.91 Unspecified atrial fibrillation; R06.00 Dyspnea, unspecified; J81.0 Acute pulmonary edema | CPT/HCPCS: 71045; 93970 ==

== ENCOUNTER → 2024-06-21 14:42 | Outpatient (BNV) | payer OTHER, SELFPAY | PROVIDERS: Admitting Provider Internal Medicine; Emergency Provider Emergency Medicine; PCP Internal Medicine Geriatric Medicine; Visit Provider Internal Medicine | DX: I42.9 Cardiomyopathy, unspecified (principal); I48.91 Unspecified atrial fibrillation | CPT/HCPCS: 99222; 99232; 99239 ==

== ENCOUNTER 2024-07-16 14:38 | Outpatient (AMB) | payer OTHER, SELFPAY ==
--- NOTE | 2024-07-16 14:53 | MHC.OFFVIS ---
Vital Signs 07/16/24 14:56 Height 5 ft 10 in Weight 208 lb 8.917 oz BMI 29.9 BP 110/64 Blood Pressure Location Lt brachial Position Sitting Pulse 66 Pulse Source Monitor Intake Visit Reasons: 4-6 week f/up Intake Note: 4 -6 wk f/up Captain Room Service Required: No Accompanied by: Self / Same As Patient Allergies acetaminophen [From Percocet] Allergy (Verified 06/21/24 10:39) Itching bee pollen [bee stings] Allergy (Verified 06/21/24 10:39) Anaphylaxis oxycodone [From Percocet] Allergy (Verified 06/21/24 10:39) Itching Medication List - Last Reconciled 07/16/24 by Myles Willams MD acetaminophen 500 - 1,000 mg PO Q6H PRN apixaban (Eliquis) 5 mg PO BID carvedilol 3.125 mg See Protocol PO BID empagliflozin (Jardiance) 10 mg PO DAILY furosemide (Lasix) 40 mg PO DAILY melatonin 10 mg PO BEDTIME PRN multivitamin 1 tab PO DAILY sacubitril-valsartan 24-26 mg (Entresto) 1 tab See Protocol PO BID HPI Comments Details: 58-year-old male presenting with cardiomyopathy and atrial fibrillation. Initially diagnosed during a hospital admission in June 2024, he notes improvement in breathing following cessation of smoking and alcohol. Apart from a single brief episode of dizziness, his symptoms appear controlled, with no recurring chest discomfort. He remains in atrial fibrillation. The patient's compliance with medication is good, and he is aware of the potential need for procedures to address his heart rhythm disorder. Initial presentation EKG was AFib with RVR and left bundle-branch block. We initially felt the left bundle-branch block is playing a role in his cardiomyopathy but as his heart rate was controlled he had narrow complex rhythm and in fact had rate related left bundle-branch block. He was on spironolactone but developed some hyperkalemia and subsequently his spironolactone was discontinued. He was eating oranges and bananas before that so there was some dietary potassium intake also. [facility] Medical History (Updated 07/01/24 @ 00:02 by Kyle Mabry) HTN (hypertension) Social History Household Members: Family Housing: House Alcohol intake: current Alcohol intake frequency: 3 or more drinks per day Alcohol type: hard liquor Comment: pt refusing bed alarm Patient Tobacco Use Status: Former Tobacco user Substance Use Type: Marijuana service: No Review of Systems Const Denies chills, Denies fatigue, Denies fever(s), Denies frequent falls, Denies weakness, Denies weight gain and Denies weight loss ENT Denies dizziness Card Denies chest pain, Denies leg edema, Denies lightheadedness, Denies palpitations, Denies dyspnea and Denies dyspnea on exertion Resp Denies cough, Denies dyspnea and Denies dyspnea on exertion GI Denies hematochezia Musc Denies abnormal gait, Denies muscle weakness, Denies numbness, Denies radiating pain into limb and Denies tingling Neuro Denies abnormal gait, Denies dizziness, Denies frequent falls, Denies numbness, Denies tingling and Denies weakness Endo Denies fatigue and Denies palpitations Physical Exam Vital Signs: Last Vital Signs Pulse 66 07/16/24 14:56 BP 110/64 07/16/24 14:56 BMI result Body Mass Index 29.9 GENERAL APPEARANCE: in no acute distress, pleasant. NECK: no carotid bruit, no jugular venous distention. SKIN: no suspicious lesions, warm and dry. HEART: no murmurs, regular rate and rhythm. LUNGS: clear to auscultation bilaterally. ABDOMEN: soft, nontender. EXTREMITIES: no edema. PERIPHERAL PULSES: equal. NEUROLOGIC: No gross deficits, AAO X 3 Office Procedures EKG Details: Atrial fibrillation 66 beats per minute, normal axis, precordial T-wave inversions, lateral T-wave inversions-ischemia could be a consideration. QTC 427 milliseconds. [id number], Complete Assessment & Plan Assessment & Plan (1) Cardiomyopathy: Code(s): I42.9 - Cardiomyopathy, unspecified Category: Medical Qualifiers: Cardiomyopathy type: unspecified Qualified Code(s): I42.9 - Cardiomyopathy, unspecified (2) New onset a-fib: Code(s): I48.91 - Unspecified atrial fibrillation Category: Medical (3) Rate-related bundle branch block: Code(s): I45.4 - Nonspecific intraventricular block Category: Medical Plan [age] year gentleman with background of alcoholism and recent presentation with congestive heart failure and severe cardiomyopathy on echocardiography. He was in AFib with RVR and was rate controlled. He continues to be in AFib with precordial T-wave inversions. No ischemic symptoms. Plan to do cardioversion on him in the coming weeks. Starting him on amiodarone 400 mg daily. Once he is cardioverted we will refer him for ablation and eventually get him off the amiodarone. We will arrange repeat echocardiography in few months. Denying any ischemic symptoms currently and would decide about ischemic evaluation in the future. Thank you for allowing me to participate in the care of your patient. Please feel free to contact me if you have any questions. Orders: Orders Cardioversion Today I48.91 - Unspecified atrial fibrillation Medications: New amiodarone 200 mg orally Take 2 tablets twice a day x 2 weeks, after that 1 tablet daily.; 120 tabs 3RF I48.91 - Unspecified atrial fibrillation Refilled sacubitril-valsartan 24-26 mg (Entresto) 1 tab See Protocol PO BID 180 tabs 3RF furosemide (Lasix) 40 mg PO DAILY 90 tabs 3RF empagliflozin (Jardiance) 10 mg PO DAILY 90 tabs 3RF carvedilol 3.125 mg See Protocol PO BID 180 tabs 3RF apixaban (Eliquis) 5 mg PO BID 180 tabs 3RF Discontinued losartan Discontinued Reason: Doctor's Order 25 mg PO DAILY 90 tabs 0RF Coding Level of Care Code Est Pt Level 4 (94236) Diagnoses Cardiomyopathy I42.9 Cardiomyopathy type: unspecified New onset a-fib I48.91 Rate-related bundle branch block I45.4 CPT Codes EKG - CPT: 64438-[id number], Complete ([id number])
[2024-07-16 14:56] VITALS: BP 110/64; PULSE 66; BMI 29.9
== END 2024-07-16 15:28 | disposition home or self-care (01) ==
LOC: HO.HCS 14:38
PROVIDERS: Visit Provider Internal Medicine Cardiovascular Disease
DX: I42.9 Cardiomyopathy, unspecified (principal); I48.91 Unspecified atrial fibrillation; I45.4 Nonspecific intraventricular block
CPT/HCPCS: 93010; 99214

== ENCOUNTER → 2024-07-16 14:38 | Outpatient (BNVA) | payer OTHER, SELFPAY | PROVIDERS: Visit Provider Internal Medicine Cardiovascular Disease | DX: I42.9 Cardiomyopathy, unspecified (principal); I48.91 Unspecified atrial fibrillation; I45.4 Nonspecific intraventricular block; R94.31 Abnormal electrocardiogram [ECG] [EKG] | CPT/HCPCS: 93005 ==

== ENCOUNTER 2024-07-30 10:16 | Day surgery (SDC) | payer OTHER, SELFPAY ==
--- NOTE | 2024-07-27 08:25 | HO.ANESPROP2 ---
Documented by User: Jeniffer Paz NP 07/27/24 08:30 HPI - Anesthesia Eval Consult details Narrative: 58yo M for Cardioversion Eliquis for afib Anesthesia Pre-Procedure Meds Is the patient on any of the following meds?: SGLT2 Inhib PMFSH Active Problems Active Problems: All Active Problems CHF (congestive heart failure) (Acute) Rate-related bundle branch block (Acute) Cardiomyopathy (Acute) Left bundle branch block (LBBB) (Acute) New onset a-fib (Acute) Past Medical History Medical History (Updated 07/01/24 @ 00:02 by Kyle Mabry) HTN (hypertension) Social History Social History Household Members: Family Housing: House Alcohol intake: current Alcohol intake frequency: holidays/special occasions only Alcohol type: hard liquor Comment: pt refusing bed alarm Patient Tobacco Use Status: Former Tobacco user Second Hand Smoke Exposure: No Use of substances other than those prescribed or required for medical reasons: Yes Substance Use Type: Marijuana Substance Use Frequency: Monthly Have you been hit, kicked, punched, or otherwise hurt by someone within the past year? If so, by whom?: No Are you DNR?: No Advance Directives: No Advance Directives Information Provided: Yes Advance Directives on File: No Poor oral hygiene: No service: No Meds Allergies Allergy/AdvReac Type Severity Reaction Status Date / Time acetaminophen [From Percocet] Allergy Itching Verified 06/21/24 10:39 bee pollen [bee stings] Allergy Anaphylaxis Verified 06/21/24 10:39 oxycodone [From Percocet] Allergy Itching Verified 06/21/24 10:39 Home Medications ?Medication ?Instructions ?Recorded ?Confirmed ?Last Taken ?Type acetaminophen 500 mg tablet 500 - 1,000 mg PO Q6H PRN Pain 06/21/24 07/30/24 07/30/24 History melatonin 10 mg tablet 10 mg PO BEDTIME PRN Sleep 06/21/24 07/30/24 07/30/24 History multivitamin 1 tab PO DAILY 06/21/24 07/30/24 07/30/24 History Exam Narrative Narrative: EKG 07/2024 Details: Atrial fibrillation 66 beats per minute, normal axis, precordial T-wave inversions, lateral T-wave inversions-ischemia could be a consideration. QTC 427 milliseconds. ECHO 06/2024 Conclusions: - Normal left ventricular cavity size. There is mildly increased left ventricular wall thickness. The left ventricular systolic function is severely decreased. The visually estimated ejection fraction is between 10-15%. - Mildly increased right ventricular cavity size. There is mildly decreased right ventricular systolic function. - The left atrium is moderately dilated. The right atrium is moderately dilated. - Significantly elevated right atrial pressure. Assessment and Plan Assessment Anesthesia Assessment: Chart Reviewed Documented by User: Diane Larios MD 07/30/24 11:50 [facility] Past Medical History Medical History (Updated 07/01/24 @ 00:02 by Kyle Mabry) HTN (hypertension) Family History Family history of problems with anesthesia: No Surgical History History of Problems with Anesthesia: No Social History Social History Household Members: Family Housing: House Alcohol intake: current Alcohol intake frequency: holidays/special occasions only Alcohol type: hard liquor Comment: pt refusing bed alarm Patient Tobacco Use Status: Former Tobacco user Second Hand Smoke Exposure: No Use of substances other than those prescribed or required for medical reasons: Yes Substance Use Type: Marijuana Substance Use Frequency: Monthly Have you been hit, kicked, punched, or otherwise hurt by someone within the past year? If so, by whom?: No Are you DNR?: No Advance Directives: No Advance Directives Information Provided: Yes Advance Directives on File: No Poor oral hygiene: No service: No Meds Allergies Allergy/AdvReac Type Severity Reaction Status Date / Time acetaminophen [From Percocet] Allergy Itching Verified 06/21/24 10:39 bee pollen [bee stings] Allergy Anaphylaxis Verified 06/21/24 10:39 oxycodone [From Percocet] Allergy Itching Verified 06/21/24 10:39 Home Medications ?Medication ?Instructions ?Recorded ?Confirmed ?Last Taken ?Type acetaminophen 500 mg tablet 500 - 1,000 mg PO Q6H PRN Pain 06/21/24 07/30/24 07/30/24 History melatonin 10 mg tablet 10 mg PO BEDTIME PRN Sleep 06/21/24 07/30/24 07/30/24 History multivitamin 1 tab PO DAILY 06/21/24 07/30/24 07/30/24 History Exam Airway Mallampati Class: II TM Dist: >3cm Neck ROM: Full Heart: irregular Lungs: cta Assessment and Plan Assessment Anesthesia Assessment: Anesthesia Plan Discussed Final Anesthetic Review Family History of Problems with Anesthesia: No History of Problems with Anesthesia: No NPO: Yes ASA Class: III Final Preanesthetic Review: No Changes in Pt Med Stat, Meds/Allgs Chart Reviewed and Consent Obtained/Reviewed Patient Risk: Intermediate Procedure Risk: Low Anesthetic Plan Anesthetic Plan: MAC: Disposition: Standard PACU
--- NOTE | 2024-07-30 | ECG_ITS ---
Test Reason : post cardioversion Blood Pressure : */* mmHG Vent. Rate : 45 BPM Atrial Rate : 576 BPM P-R Int : 246 ms QRS Dur : 166 ms QT Int : 576 ms P-R-T Axes : 55 -36 60 degrees QTcB Int : 498 ms Sinus bradycardia Left axis deviation Left bundle branch block Abnormal ECG When compared with ECG of 21-Jun-2024 10:38, Sinus rhythm has replaced Afib QRS axis Shifted left Nonspecific T wave abnormality, improved in Inferior leads Nonspecific T wave abnormality, worse in Lateral leads Referred By: Myles Willams Electronically Signed By: Myles Willams
[2024-07-30 10:41] VITALS: BMI 30.6
[2024-07-30 10:53] VITALS: BP 126/74; PULSE 55; RESP 16; TEMP 36.1; O2SAT 95
[2024-07-30] MEDS: Lactated Ringers 1,000 ML 50 ML IVCONT (10:58)
--- NOTE | 2024-07-30 12:04 | MHC.SHP ---
Pre-Procedural Eval Section A - 24 Hr Update-Section A only Date of Service: 07/30/24 The patient is an INPATIENT: No The patient has been examined within 24 hours of the surgical procedure. The History & Physical has been completed within 30 days and I have reviewed it.: Yes Section B - Complete if H&P > 30 days Chief Complaint: Persistent Afib, cardiomyopathy Details of Present Illness: Here for cardioversion Allergies: Allergies Allergy/AdvReac Type Severity Reaction Status Date / Time acetaminophen [From Percocet] Allergy Itching Verified 06/21/24 10:39 bee pollen [bee stings] Allergy Anaphylaxis Verified 06/21/24 10:39 oxycodone [From Percocet] Allergy Itching Verified 06/21/24 10:39 Plan Diagnosis/Plan: Unchanged I have reviewed the history and physical and performed a pertinent physical examination on my patient. No changes have occurred unless specified. Time Spent With Patient Time: Total time managing care of this patient today ____ minutes.
--- NOTE | 2024-07-30 12:24 | P.PNCAR_ITS ---
Cardioversion Procedure Note Cardioversion Date of Procedure: 07/30/24 Ordering Provider: Myles Willams Performing Provider: Myles Willams Indication for Procedure: Afib, cardiomyopathy Performed with Transesophageal Echo: No History: 58 male with persistent Afib and cardiomyopathy. Consent: Verbal and Written consent was obtained from the patient before starting. The patient was made aware of the risk of stroke, failure to achieve sinus rhythm, skin burn and other arrhythmia. Procedure: After consent obtained, defib pads were attached and the patient was sedated by the anesthesia team. Once adequate sedation achieved, single synch shock fo 200 J was given which converted the rhythm to sinus. Complications: none Recommendations: c/w Eliquis and rest of the medications. We will arrange ablation at [facility].
[2024-07-30 12:27] VITALS: BP 117/78; PULSE 48; RESP 16; TEMP 36.8; O2SAT 98
[2024-07-30 12:32] VITALS: BP 106/55; PULSE 42; RESP 16; O2SAT 98
[2024-07-30 12:37] VITALS: BP 109/54; PULSE 49; RESP 16; O2SAT 98
[2024-07-30 12:42] VITALS: BP 108/61; PULSE 45; RESP 16; O2SAT 94
[2024-07-30 12:57] VITALS: BP 121/67; PULSE 47; RESP 18; TEMP 36.6; O2SAT 96
== END 2024-07-30 13:15 | disposition home or self-care (01) ==
PROVIDERS: Visit Provider Internal Medicine Cardiovascular Disease
PROC: 5A2204Z Restoration of Cardiac Rhythm, Single (ICD-10-PCS; principal; 2024-07-30 12:30)
DX: I48.19 Other persistent atrial fibrillation (principal); I42.9 Cardiomyopathy, unspecified; Z79.01 Long term (current) use of anticoagulants; I10 Essential (primary) hypertension; I45.4 Nonspecific intraventricular block; Z87.891 Personal history of nicotine dependence; Z79.899 Other long term (current) drug therapy
CPT/HCPCS: 92960; 93005; J2250

== ENCOUNTER → 2024-07-30 10:16 | Outpatient (BNV) | payer OTHER, SELFPAY | PROVIDERS: Visit Provider Internal Medicine Cardiovascular Disease | DX: I48.91 Unspecified atrial fibrillation (principal); I42.8 Other cardiomyopathies; R00.1 Bradycardia, unspecified | CPT/HCPCS: 92960; 93010 ==

== ENCOUNTER 2024-09-05 12:32 | Outpatient (AMB) | payer OTHER, SELFPAY ==
--- NOTE | 2024-09-05 12:50 | MHC.OFFVIS ---
Vital Signs 09/05/24 12:51 09/05/24 13:42 09/05/24 13:44 09/05/24 13:44 Height 5 ft 10 in Weight 207 lb 3.752 oz BMI 29.7 BP 138/82 132/80 132/81 126/88 Blood Pressure Location Lt brachial Lt brachial Lt brachial Lt brachial Position Sitting Supine Sitting Standing Pulse 76 72 60 92 Intake Visit Reasons: dizzy, passing out. Intake Note: Follow-up after passing out briefly at work with ekg Election Watcher Required: No Allergies bee pollen [bee stings] Allergy (Verified 06/21/24 10:39) Anaphylaxis oxycodone [From Percocet] Allergy (Verified 06/21/24 10:39) Itching Medication List - Last Reconciled 09/05/24 by Phi Garcia NP acetaminophen 500 - 1,000 mg PO Q6H PRN amiodarone 200 mg PO ONCE apixaban (Eliquis) 5 mg PO BID carvedilol 3.125 mg See Protocol PO BID empagliflozin (Jardiance) 10 mg PO DAILY furosemide (Lasix) 40 mg PO DAILY melatonin 10 mg PO BEDTIME PRN multivitamin 1 tab PO DAILY sacubitril-valsartan 24-26 mg (Entresto) 1 tab See Protocol PO BID HPI Comments Details: This is a 58-year-old male patient coming in for an office visit with complaints of syncopal episode. Patient with a history of cardiomyopathy with an EF between 10-15% and newly diagnosed atrial fibrillation in June of 2024 status post cardioversion. 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 Patient states that he had no preceding symptoms of chest pain, shortness of breath, palpitations, or dizziness. Patient states that after sitting down for a bit and hydrating well, patient returned to his baseline and was able to continue with his work with no repeated symptoms. Patient had a cardioversion with Dr. Willams on 07/30/2024 with successful conversion to sinus rhythm. Patient has since seen EP Dr. Martinez and has plans for ablation on September 12. Patient is otherwise denying any current cardiac symptoms including exertional chest pain, shortness of breath, palpitations, dizziness, orthopnea, PND, leg edema, presyncope, or syncope. Patient states he is compliant with all his medications. [facility] Medical History HTN (hypertension) Social History Household Members: Family Housing: House Alcohol intake: current Alcohol intake frequency: holidays/special occasions only Alcohol type: hard liquor Comment: pt refusing bed alarm Patient Tobacco Use Status: Former Tobacco user Second Hand Smoke Exposure: No Substance Use Type: Marijuana service: No Review of Systems Const Denies chills, Denies fatigue, Denies fever(s), Denies frequent falls, Denies weakness, Denies weight gain and Denies weight loss ENT Denies dizziness Card Denies chest pain, Denies leg edema, Denies lightheadedness, Denies palpitations, Denies dyspnea, Denies dyspnea on exertion, Denies orthopnea and Denies other (loss of consciousness) Resp Denies cough, Denies dyspnea and Denies dyspnea on exertion GI Denies hematochezia and Denies change in stool character Musc Denies abnormal gait, Denies muscle weakness, Denies numbness, Denies radiating pain into limb and Denies tingling Neuro Denies abnormal gait, Denies dizziness, Denies frequent falls, Denies numbness, Denies tingling and Denies weakness Endo Denies fatigue and Denies palpitations Physical Exam Vital Signs: Last Vital Signs Pulse 92 09/05/24 13:44 BP 156/88 H 09/05/24 13:44 BMI result Body Mass Index 29.7 Const General: cooperative, healthy appearing, comfortable and no acute distress Orientation/consciousness: patient oriented x3 HEENT Head: Yes normal to inspection Neck Neck: Yes normal visual inspection, Yes trachea midline and Yes supple Chest Chest palpation & inspection: normal inspection of the chest Resp Effort & Inspection: normal respiratory effort Auscultation: clear to auscultation bilaterally, no crackles, no rales, no rhonchi and no wheezes Cardio Jugular venous distension: no JVD Palpation: normal PMI Rate: regular rate Rhythm: abnormal rhythm irregularly irregular Heart sounds: S1 normal heart sound present, S2 normal heart sound present, no click, no gallops, no murmurs and no rubs Peripheral pulses: Peripheral pulses 2+ throughout GI Inspection: Yes normal to inspection Palpation (GI): Soft to palpation Auscultation: normal bowel sounds Skin General skin exam: no rashes or lesions noted Neuro General: patient oriented x3 Extrem General: Yes normal to inspection, No no pedal edema and No calf tenderness Psych Appearance: grossly normal Mental Status: mental status grossly normal Speech and movement: Normal speech and movement present Office Procedures EKG Details: EKG today shows Afib with LBBB, rate 76 beats per minute, nonspecific STT wave, [place]. [id number], Complete Assessment & Plan Assessment & Plan (1) Syncope: Code(s): R55 - Syncope and collapse Plan: Patient reported 1 episode of syncope, which occurred while bending down, lifting a heavy tray, and quickly standing up. Orthostatic vitals today were negative. The episode is most consistent with a vasovagal response. No changes to the current treatment regimen. (2) Afib: Code(s): I48.91 - Unspecified atrial fibrillation Category: Medical Plan: Status post cardioversion with Dr. Willams on 07/30/2024. Since has seen Dr. Kaba at [facility] and has a planned catheter ablation on 09/12/2024. EKG today showed atrial fibrillation-reviewed with Dr. Willams. Continue Eliquis for full anticoagulation therapy. Continue amiodarone for rhythm control approach. (3) Cardiomyopathy: Code(s): I42.9 - Cardiomyopathy, unspecified Category: Medical Qualifiers: Cardiomyopathy type: unspecified Qualified Code(s): I42.9 - Cardiomyopathy, unspecified Plan: 06/21/24-patient's echo study showed a severely decreased LV systolic function with an ejection fraction between 10-15%, mildly increased LV wall thickness, mildly increased RV cavity size, mildly decreased RV systolic function, moderately dilated left atrium and right atrium, significantly elevated RA pressure. Clinically stable and euvolemic. Continue with neurohormonal guided medical therapy-carvedilol, Jardiance, Lasix, and Entresto. Following ablation, we can repeat an echo to look for any improvement. At that time, if continues to have severely decreased ejection fraction and with a history of left bundle branch block, patient may need a pacemaker with MILIEU THERAPIST-D. This is thoroughly discussed with the patient today and he is agreeable to the plan. (4) Left bundle branch block (LBBB): Code(s): I44.7 - Left bundle-branch block, unspecified Category: Medical Plan: Clinically stable at this time. As above. Advised heart healthy diet, stress medication strategies, adequate hydration, med compliance, and management of vascular risk factors. Follow-up after ablation. In the interim, patient will call the office with any concerns or change in symptoms. This note was generated using voice recognition software. While every effort has been made to ensure accuracy and proper checker dump grounds, there may be occasional errors that could affect the content or meaning of the described symptoms. Orders: Orders AMB EKG-In Office Today Phi Garcia NP I48.91 - Unspecified atrial fibrillation Medications: Changed From amiodarone 200 mg orally Take 2 tablets twice a day x 2 weeks, after that 1 tablet daily.; 120 tabs 3RF I48.91 - Unspecified atrial fibrillation To amiodarone 200 mg PO ONCE I48.91 - Unspecified atrial fibrillation Myles Willams MD Coding Level of Care Code Est Pt Level 4 (72925) Complex EM visit Add On G2211 Diagnoses Syncope R55 Afib I48.91 Cardiomyopathy I42.9 Cardiomyopathy type: unspecified Left bundle branch block (LBBB) I44.7 CPT Codes EKG - CPT: 03257-[id number], Complete ([id number]) Time Spent (min) 32 Comment Time spent in reviewing the chart, test results, assessment, counseling and documentation.
[2024-09-05 12:51] VITALS: BP 138/82; PULSE 76; BMI 29.7
[2024-09-05 13:42] VITALS: BP 132/80; PULSE 72
[2024-09-05 13:44] VITALS: BP 126/88; BP 132/81; PULSE 60; PULSE 92
== END 2024-09-05 13:40 | disposition home or self-care (01) ==
LOC: HO.HCS 12:33
DX: R55 Syncope and collapse (principal); I48.91 Unspecified atrial fibrillation; I42.9 Cardiomyopathy, unspecified; I44.7 Left bundle-branch block, unspecified
CPT/HCPCS: 93010; 99214

== ENCOUNTER → 2024-09-05 12:32 | Outpatient (BNVA) | payer OTHER, SELFPAY | DX: R55 Syncope and collapse (principal); I48.91 Unspecified atrial fibrillation; I44.7 Left bundle-branch block, unspecified; I42.9 Cardiomyopathy, unspecified; I10 Essential (primary) hypertension | CPT/HCPCS: 93005 ==

== ENCOUNTER 2024-10-24 14:06 | Outpatient (AMB) | payer OTHER, SELFPAY ==
--- NOTE | 2024-10-24 14:27 | A.OFFVIS_ITS ---
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 Accompanied by: Self / Same As Patient Allergies bee pollen (bee stings) Allergy (Verified 06/21/24 10:39) Anaphylaxis oxycodone (From Percocet) Allergy (Verified 06/21/24 10:39) Itching Medication List - Last Reconciled 10/24/24 by Phi Garcia NP acetaminophen 500 - 1,000 mg PO Q6H PRN amiodarone 200 mg PO ONCE apixaban (Eliquis) 5 mg PO BID carvedilol 3.125 mg See Protocol PO BID empagliflozin (Jardiance) 10 mg PO DAILY furosemide (Lasix) 40 mg PO DAILY melatonin 10 mg PO BEDTIME PRN multivitamin 1 tab PO DAILY sacubitril-valsartan 24-26 mg (Entresto) 1 tab See Protocol PO BID HPI Comments Details: This is a 58-year-old male patient coming in for a follow-up visit status post ablation. Patient with a history of cardiomyopathy with an EF between 10-15% and AFib with cardioversion and now status post ablation 09/12/[address] Martinez. Today patient is reporting the ongoing dizziness with positional huitron ges and upon bending down to belt picker objects. Previously orthostatics were negative. Patient is otherwise denying any exertional chest pain, shortness of breath, palpitations, orthopnea, PND, leg edema, or syncopal episodes. Patient is reporting compliance with all his medications. [facility] Medical History HTN (hypertension) Surgical History S/P ablation of atrial fibrillation Social History Household Members: Family Housing: House Alcohol intake: current Alcohol intake frequency: holidays/special occasions only Alcohol type: hard liquor Comment: pt refusing bed alarm Patient Tobacco Use Status: Former Tobacco user Second Hand Smoke Exposure: No Substance Use Type: Marijuana service: No Review of Systems Const Denies chills, Denies fatigue, Denies fever(s), Denies frequent falls, Denies weakness, Denies weight gain and Denies weight loss ENT Denies dizziness Card Denies chest pain, Denies leg edema, Denies lightheadedness, Denies palpitations, Denies dyspnea and Denies dyspnea on exertion Resp Denies cough, Denies dyspnea and Denies dyspnea on exertion GI Denies hematochezia Musc Denies abnormal gait, Denies muscle weakness, Denies numbness, Denies radiating pain into limb and Denies tingling Neuro Denies abnormal gait, Denies dizziness, Denies frequent falls, Denies numbness, Denies tingling and Denies weakness Endo Denies fatigue and Denies palpitations Physical Exam Vital Signs: Last Vital Signs Pulse 58 10/24/24 14:29 BP 124/62 10/24/24 14:29 BMI result Body Mass Index 30.0 Const General: cooperative, healthy appearing, comfortable and no acute distress Orientation/consciousness: patient oriented x3 HEENT Head: Yes normal to inspection Neck Neck: Yes normal visual inspection, Yes trachea midline and Yes supple Chest Chest palpation & inspection: normal inspection of the chest Resp Effort & Inspection: normal respiratory effort Auscultation: clear to auscultation bilaterally, no crackles, no rales, no rhonchi and no wheezes Cardio Jugular venous distension: no JVD Palpation: normal PMI Rate: regular rate Rhythm: regular rhythm Heart sounds: S1 normal heart sound present, S2 normal heart sound present, no click, no gallops, no murmurs and no rubs Peripheral pulses: Peripheral pulses 2+ throughout GI Inspection: Yes normal to inspection Palpation (GI): Soft to palpation Auscultation: normal bowel sounds Skin General skin exam: no rashes or lesions noted Neuro General: patient oriented x3 Extrem General: Yes normal to inspection, No no pedal edema and No calf tenderness Psych Appearance: grossly normal Mental Status: mental status grossly normal Speech and movement: Normal speech and movement present Office Procedures EKG Details: EKG today shows sinus bradycardia, rate 58 beats per minute, left bundle branch block, normal CO, [place]. [id number], Complete Assessment & Plan Assessment & Plan (1) Afib: Code(s): I48.91 - Unspecified atrial fibrillation Category: Medical Plan: Was newly diagnosed with AFib in June. Had a cardioversion back in July and now status post ablation with Dr. Martinez on 09/12/2024. Today's EKG showed sinus rhythm. Continue Eliquis for full anticoagulation therapy. Per plan, patient no longer on amiodarone therapy. Patient's symptoms of dizziness could be vasovagal however, we will repeat an echocardiogram. If patient continues to have severely decreased ejection fraction, we will refer patient back to EP for pacemaker with FRAME FEEDER-D as he has a history of left bundle branch block. This was discussed in detail with the patient today. Patient agrees upon the plan. For now, continue with the neuro hormonal directed medical therapy consisting of carvedilol, Jardiance, Lasix, and Entresto. We will repeat labs. (2) Cardiomyopathy: Code(s): I42.9 - Cardiomyopathy, unspecified Category: Medical Qualifiers: Cardiomyopathy type: unspecified Qualified Code(s): I42.9 - Cardiomyopathy, unspecified Plan: As above. Medically stable and euvolemic. (3) Left bundle branch block (LBBB): Code(s): I44.7 - Left bundle-branch block, unspecified Category: Medical Plan: As above. Advised heart healthy diet, adequate hydration, stress medication strategies, avoidance of smoking and alcohol, medication compliance, and management of vascular risk factors. Follow up in 2-3 months. In the interim, patient will call the office with any concerns or change in symptoms. This note was generated using voice recognition software. While every effort has been made to ensure accuracy and proper manager of change, there may be occasional errors that could affect the content or meaning of the described symptoms. Orders: Orders Basic Metabolic Panel Today I42.9 - Cardiomyopathy, unspecified CA echo transthoracic complete Today I42.9 - Cardiomyopathy, unspecified AMB EKG-In Office Today I44.7 - Left bundle-branch block, unspecified, I48.91 - Unspecified atrial fibrillation Coding Level of Care Code Est Pt Level 4 (62939) Complex EM visit Add On G2211 Diagnoses Afib I48.91 Cardiomyopathy I42.9 Cardiomyopathy type: unspecified Left bundle branch block (LBBB) I44.7 CPT Codes EKG - CPT: 66790-[id number], Complete ([id number]) Time Spent (min) 32 Comment Time spent in reviewing the chart, test results, assessment, counseling and documentation.
[2024-10-24 14:29] VITALS: BP 124/62; PULSE 58
== END 2024-10-24 15:01 | disposition home or self-care (01) ==
LOC: HO.HCS 14:06
DX: I48.91 Unspecified atrial fibrillation (principal); I42.9 Cardiomyopathy, unspecified; I44.7 Left bundle-branch block, unspecified
CPT/HCPCS: 93010; 99214; G2211

== ENCOUNTER → 2024-10-24 14:06 | Outpatient (BNVA) | payer OTHER, SELFPAY | DX: I44.7 Left bundle-branch block, unspecified (principal); I48.91 Unspecified atrial fibrillation; I42.9 Cardiomyopathy, unspecified; Z79.01 Long term (current) use of anticoagulants | CPT/HCPCS: 93005 ==

== ENCOUNTER 2024-12-14 10:02 | Outpatient (AMB) | payer OTHER, SELFPAY ==
--- NOTE | 2024-12-14 10:07 | MHC.PC.OV ---
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 Accompanied by: Self / Same As Patient Allergies bee pollen (bee stings) Allergy (Verified 12/14/24 10:21) Anaphylaxis oxycodone (From Percocet) Allergy (Verified 12/14/24 10:21) Itching Medication List - Last Reconciled 12/14/24 by MAGGIE Patel acetaminophen 500 - 1,000 mg PO Q6H PRN apixaban (Eliquis) 5 mg PO BID carvedilol 3.125 mg See Protocol PO BID empagliflozin (Jardiance) 10 mg PO DAILY furosemide (Lasix) 40 mg PO DAILY melatonin 10 mg PO BEDTIME PRN multivitamin 1 tab PO DAILY sacubitril-valsartan 24-26 mg (Entresto) 1 tab See Protocol PO BID Tobacco use date assessed: 12/14/24 Dental Screening Dental Screen Date: 12/14/24 Did you have a dental visit in the last 12 months?: No Did you have a dental problem in the last 6 months where you did not have access to dental care?: No Was dental information given to patient?: No HPI TIN FLOPPER-med f/u HPI Details Previous PCP: Adrianna Paredes in [place] Last visit:About 4-5 years Last PE: Reports he has not have physical in a while Specialist: cardiology OBGYN:n/a Past medical history: 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 Right ankle with screws placement when he was 19 years old, Medications: Family HX: Father had kidney problems, bowels issues, passed from AAA at the age of 84, had a heart attack at 54 years, Mother had breast CA passed at age 6262 years old, reports that his mother smoked as well. 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 [facility] Medical History (Updated 12/14/24 @ 13:07 by Avila Villalobos, PATTERN CLEANER-C) Osteoarthritis of hands, bilateral History of smoking 25-50 pack years Left bundle branch block (LBBB) CHF (congestive heart failure) Cardiomyopathy HTN (hypertension) Surgical History (Updated 12/14/24 @ 13:20 by MAGGIE Patel) History of arthroplasty of right ankle S/P ablation of atrial fibrillation Family History (Updated 12/14/24 @ 12:36 by MAGGIE Patel) Father AAA (abdominal aortic aneurysm) Kidney disease Myocardial infarction Small bowel problem Mother Breast cancer genetic susceptibility Social History Household Members: Family Housing: House Alcohol intake: current Alcohol intake frequency: holidays/special occasions only Alcohol type: hard liquor Comment: pt refusing bed alarm Patient Tobacco Use Status: Former Tobacco user e-Cigarette/Vaping Use: Never Used Second Hand Smoke Exposure: No Substance Use Type: Marijuana service: No 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 1. Little interest or pleasure in doing things: several days 2. Feeling down, depressed, or hopeless: several days 3. Trouble falling or staying asleep, or sleeping too much: several days 4. Feeling tired or having little energy: several days 5. Poor appetite or overeating: several days Source: Developed by Drs. Sonido Pena, Mable Burrows, Dillon Oliveros and colleagues, with an educational jovon from [employer] Thrive Questionnaire Date Thrive assessed: 12/14/24 I am a: Patient What is your living situation today?: I have a steady place to live Within the past 12 months, did the food you bought not last and you didn't have the money to get more?: I choose not to answer this question Within the past 12 months, did you worry whether your food would run out before you got money to buy more?: I choose not to answer this question Do you have trouble paying for medicines?: Yes Do you have trouble getting transportation to medical appointments?: No Do you have trouble paying your heating and electricity bill?: I choose not to answer this question Do you have trouble taking care of your child, family member or friend?: No Do you have trouble with day-to-day activities such as bathing, preparing meals, shopping, managing finances, etc.?: No Are you currently unemployed and looking for a job?: No Are you interested in more education?: No Please select the resources that you would like help with: Paying for medicine Currently or been in a relationship where the following occur: I choose not to answer THRIVE Score: 0 AUDIT C Alcohol Use Questionnaire (AUDIT-C) 1. How often do you have a drink containing alcohol?: 2-4 times a month 2. How many drinks containing alcohol do you have on a typical day when you are drinking?: 1 or 2 3. How often do you have six or more drinks on one occasion?: Monthly Total Score: 4 BERNIE-7 AMB Questionnaire BERNIE-7 Date BERNIE - 7 assessed: 12/14/24 Feeling nervous, anxious, or on edge: 1 = Several days Not being able to stop or control worryin = Several days Worrying too much about different things: 1 = Several days Trouble relaxin = Not at all Being so restless that it is hard to sit still: 0 = Not at all Becoming easily annoyed or irritable: 1 = Several days Feeling afraid as if something awful might happen: 0 = Not at all Total BERNIE-7 score (0-4 normal; 5-9 mild; 10-14 moderate; 15-21 severe): 4 Source: Developed by Drs. Sonido Pena, Mable Burrows, Dillon Oliveros and colleagues, with an educational jovon from [employer]. Review of Systems Const Denies headache(s) Eyes Denies loss of vision ENT Denies vertigo, Denies dizziness, Denies headache(s) and Denies sore throat Card Denies chest pain, Denies leg edema and Denies lightheadedness Resp Denies cough, Denies hemoptysis and Denies wheezing GI Denies abdominal pain, Denies melena, Denies constipation, Denies diarrhea and Denies vomiting Denies dysuria, Denies urinary frequency and Denies urinary urgency Musc Reports arthralgias (Finger joints intermittently), Reports joint swelling (Finger joints intermittent), Denies numbness and Denies tingling Neuro Denies Abnormal speech present, Denies behavioral changes, Denies vertigo, Denies dizziness, Denies headache(s), Denies loss of vision, Denies memory loss, Denies numbness and Denies tingling Psych Denies anxiety, Denies behavioral changes, Denies depression, Denies memory loss and Denies panic attacks Chente/Lymph Denies easy bleeding and Denies easy bruising Aller/Immun Denies wheezing Physical exam (Primary Care) Vital Signs: Last Vital Signs Temp 97.1 F 12/14/24 10:08 Pulse 51 12/14/24 10:08 Resp 18 12/14/24 10:08 BP 142/62 H 12/14/24 10:08 Pulse Ox 96 12/14/24 10:08 Oxygen Delivery Method Room Air 12/14/24 10:08 BMI result Body Mass Index 30.3 Tobacco/Smoking Status: Tobacco use Status Tobacco use date assessed 12/14/24 12/14/24 10:19 Patient Tobacco Use Status Former Tobacco user 12/14/24 10:19 e-Cigarette/Vaping Use Never Used 12/14/24 10:19 Thrive Assessment: Date of Thrive Assessment Date Thrive assessed 12/14/24 12/14/24 10:19 Currently or been in a relationship where the following occur: I choose not to answer Const General: healthy appearing, no acute distress, alert and awake Nutritional Appearance: well nourished Orientation/consciousness: oriented to person, oriented to place and oriented to time HENMT Ears: TM's normal bilaterally General nose exam: Normal nasal mucous membranes and turbinates present Eyes Conjunctivae: conjunctivae normal Sclerae: sclerae normal Pupils: Equal, round and reactive pupils present Neck Neck: Yes no lymphadenopathy and Yes no JVD Thyroid: Thyroid normal Carotids: no bruits Resp Effort & Inspection: normal respiratory effort and not tachypneic Auscultation: no crackles, no rales, no rhonchi and no wheezes Cardio Rate: regular rate Rhythm: regular rhythm Heart sounds: no murmurs and normal S1 and S2 GI Palpation (GI): Soft to palpation, nontender, no hepatomegaly and no splenomegaly Auscultation: normal bowel sounds Skin General skin exam: no rashes or lesions noted and dry skin Neuro General: oriented to person, oriented to place and oriented to time Cranial nerves: Yes Equal, round and reactive pupils present Speech: No Abnormal speech present Gait exam (Neuro): Normal gait present Motor exam (neuro): no tremor noted Extrem Right upper extremity: full ROM and Extremity exam: right hand (Heberden's/jenny's nodes in bilateral hands) Left upper extremity: full ROM Right lower extremity: full ROM; no edema Left lower extremity: full ROM; no edema Psych Mental Status: mental status grossly normal Speech and movement: Normal speech and movement present Affect: normal affect Attitude: cooperative Thought process: Normal thought process present Coding Level of Care Code New Pt Level 4 (54367) Diagnoses History of smoking 25-50 pack years Z87.891 Cardiomyopathy I42.9 Cardiomyopathy type: unspecified Congestive heart failure, unspecified HF chronicity, unspecified heart failure type I50.9 Heart failure type: unspecified Heart failure chronicity: unspecified Left bundle branch block (LBBB) I44.7 Atrial fibrillation, unspecified type I48.91 Atrial fibrillation type: unspecified Osteoarthritis of both hands, unspecified osteoarthritis type M19.041; M19.042 Osteoarthritis type: unspecified Time Spent (min) 43 Assessment & Plan Assessment & Plan (1) History of smoking 25-50 pack years: Code(s): Z87.891 - Personal history of nicotine dependence Category: Social Hx Plan: Reports stopped smoking after finding out his heart condition in June. Reinforced smoking cessation. (2) Cardiomyopathy: Code(s): I42.9 - Cardiomyopathy, unspecified Category: Medical Qualifiers: Cardiomyopathy type: unspecified Qualified Code(s): I42.9 - Cardiomyopathy, unspecified Plan: Denies chest pain with it without exertion. 06/21/2024 echo study showed severe decreased and LV systolic function and EF between 10-15%, mildly increased LV wall thickness, mildly increased RV cavity size, mildly decreased RV systolic function, mildly dilated left atrium in her right atrium, significantly elevated RA pressure. The patient reports that he missed his follow up echocardiogram and we will call the has a rescheduled. There was a concern that the patient might need pacemaker if ejection fraction continues to be severely decreased. (3) CHF (congestive heart failure): Code(s): I50.9 - Heart failure, unspecified Category: Medical Qualifiers: Heart failure type: unspecified Heart failure chronicity: unspecified Qualified Code(s): I50.9 - Heart failure, unspecified Plan: Denies shortness of breath, lungs clear to auscultation bilaterally. No leg swollen. Continue furosemide 40 mg daily Rx refilled for patient. Patient was encouraged to monitor blood pressure at home and to weigh self daily. 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 (4) Left bundle branch block (LBBB): Code(s): I44.7 - Left bundle-branch block, unspecified Category: Medical Plan: Clinically stable (5) Afib: Code(s): I48.91 - Unspecified atrial fibrillation Category: Medical Qualifiers: Atrial fibrillation type: unspecified Qualified Code(s): I48.91 - Unspecified atrial fibrillation Plan: New AFib in June. Cardioversion back in July, then ablation on 09/12/[address] Martinez Patient follow up EKG shows sinus rhythm He is on Eliquis 5 mg b.i.d. and amiodarone was discontinued (6) Osteoarthritis of hands, bilateral: Code(s): M19.041 - Primary osteoarthritis, right hand; M19.042 - Primary osteoarthritis, left hand Category: Medical Qualifiers: Osteoarthritis type: unspecified Qualified Code(s): M19.041 - Primary osteoarthritis, right hand; M19.042 - Primary osteoarthritis, left hand Plan: Mild Heberden's and bouchards node to joints on bilateral hands. Reports that the pain is mild but once in a while it is hard to open and close hands. Encouraged continuous modified activity and treat pain conservatively Plan We will have the patient complete blood work and return in 7 weeks Orders: Orders B Type Natriuretic Peptide Today I42.9 - Cardiomyopathy, unspecified, I44.7 - Left bundle-branch block, unspecified, I45.4 - Nonspecific intraventricular block, I48.91 - Unspecified atrial fibrillation, I50.9 - Heart failure, unspecified, Z00.00 - Encounter for general adult medical examination without abnormal findings UA CC w/rflx Micro + Cult Today I42.9 - Cardiomyopathy, unspecified, I44.7 - Left bundle-branch block, unspecified, I45.4 - Nonspecific intraventricular block, I48.91 - Unspecified atrial fibrillation, I50.9 - Heart failure, unspecified, Z00.00 - Encounter for general adult medical examination without abnormal findings TSH reflex Free T4 Today I42.9 - Cardiomyopathy, unspecified, I44.7 - Left bundle-branch block, unspecified, I45.4 - Nonspecific intraventricular block, I48.91 - Unspecified atrial fibrillation, I50.9 - Heart failure, unspecified, Z00.00 - Encounter for general adult medical examination without abnormal findings Vitamin D 25-OH Total Today I42.9 - Cardiomyopathy, unspecified, I44.7 - Left bundle-branch block, unspecified, I45.4 - Nonspecific intraventricular block, I48.91 - Unspecified atrial fibrillation, I50.9 - Heart failure, unspecified, Z00.00 - Encounter for general adult medical examination without abnormal findings Microalbumin, Random (w Creat) Today I42.9 - Cardiomyopathy, unspecified, I44.7 - Left bundle-branch block, unspecified, I45.4 - Nonspecific intraventricular block, I48.91 - Unspecified atrial fibrillation, I50.9 - Heart failure, unspecified, Z00.00 - Encounter for general adult medical examination without abnormal findings PSA,Total (Free>4and<10) Today I42.9 - Cardiomyopathy, unspecified, I44.7 - Left bundle-branch block, unspecified, I45.4 - Nonspecific intraventricular block, I48.91 - Unspecified atrial fibrillation, I50.9 - Heart failure, unspecified, Z00.00 - Encounter for general adult medical examination without abnormal findings Complete Blood Count Auto Diff Today I42.9 - Cardiomyopathy, unspecified, I44.7 - Left bundle-branch block, unspecified, I45.4 - Nonspecific intraventricular block, I48.91 - Unspecified atrial fibrillation, I50.9 - Heart failure, unspecified, Z00.00 - Encounter for general adult medical examination without abnormal findings Comprehensive [place]. Panel Fast Today I42.9 - Cardiomyopathy, unspecified, I44.7 - Left bundle-branch block, unspecified, I45.4 - Nonspecific intraventricular block, I48.91 - Unspecified atrial fibrillation, I50.9 - Heart failure, unspecified, Z00.00 - Encounter for general adult medical examination without abnormal findings Lipid Panel Today I42.9 - Cardiomyopathy, unspecified, I44.7 - Left bundle-branch block, unspecified, I45.4 - Nonspecific intraventricular block, I48.91 - Unspecified atrial fibrillation, I50.9 - Heart failure, unspecified, Z00.00 - Encounter for general adult medical examination without abnormal findings Medications: Refilled furosemide (Lasix) 40 mg PO DAILY 90 tabs 3RF
[2024-12-14 10:08] VITALS: BP 142/62; PULSE 51; RESP 18; TEMP 36.2; O2SAT 96; BMI 30.3
== END 2024-12-14 10:52 | disposition home or self-care (01) ==
LOC: HO.HMCH 10:02
PROVIDERS: PCP Internal Medicine Geriatric Medicine
DX: I50.9 Heart failure, unspecified (principal); I42.9 Cardiomyopathy, unspecified; I48.91 Unspecified atrial fibrillation; Z87.891 Personal history of nicotine dependence; I44.7 Left bundle-branch block, unspecified; M19.041 Primary osteoarthritis, right hand; M19.042 Primary osteoarthritis, left hand

== ENCOUNTER → 2025-01-15 08:43 | Outpatient (REF) | payer OTHER, SELFPAY ==
--- NOTE | 2025-01-15 08:46 | CA_ITS ---
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 The calculated ejection fraction is 43% by biplane method. - There is moderate septal asymmetric hypertrophy. - Evidence suggests grade II (moderate) diastolic dysfunction. - No obvious valvular pathology seen on this study. Findings Procedure Information Contrast agent, definity, is being given per protocol without apparent complications. Left Ventricle Normal left ventricular cavity size. The left ventricular systolic function is mildly decreased. The calculated ejection fraction is 43% by biplane method. There is mild global hypokinesis. Evidence suggests grade II (moderate) diastolic dysfunction. There is moderate septal asymmetric hypertrophy. Right Ventricle Mildly increased right ventricular cavity size. There is mildly decreased right ventricular systolic function. Atria The left atrium is moderately dilated. The right atrium is mildly dilated. Aortic Valve There is a normal trileaflet aortic valve. There is no aortic valve stenosis. There is no aortic valve regurgitation. Mitral Valve There is mild mitral annular calcification. There is trace mitral valve regurgitation. There is no mitral valve stenosis. Pulmonic Valve The pulmonic valve is likely normal. Tricuspid Valve There is trace tricuspid valve regurgitation. There is no evidence of pulmonary hypertension. Great Vessels The asc aorta is normal in size. Small plaque is seen in the sino tubular ridge. Venous The inferior vena cava is normal in size and collapses greater than 50% with inspiration. Pericardium/Pleural There is no evidence of pericardial effusion. Prior Study Comparison Changes noted compared to prior study dated: 06/21/2024. LVEF improved. Recommendations, Care & Conclusions No obvious valvular pathology seen on this study. Measurements 2D Linear Measurements IVSd: 1.41 0.6-0.9/0.6-1.0 cm LVIDd: 4.57 3.9-5.3/4.2-5.9 cm LVIDd Index: 2.14 2.4-3.2/2.2-3.1 cm/m2 LVIDs: 3.45 2.0-3.6 cm LVPWd: 1.04 0.7-1.1 cm LA Diam: 4.40 2.7-3.8/3.0-4.0 cm LAIDs Index: 2.06 1.5-2.3 cm/m2 LV Mass: 260.52 67-162/88-224 g LV Mass Index: 121.74 43-95/49-115 g/m2 LVOT Diam: 2.30 3.0+(-)1.3 cm 2D Systolic Function EF 4C: 38.70 >55% EF 2C: 43.90 >55% EF BiP: 42.90 >55% Mitral Valve MV Pk E: 0.58 MV PK A: 0.33 MV Decel Time: 165.00 E/A: 1.70 E'Lateral: 7.83 E'Medial: 5.98 E/E' Med: 9.70 E/E' Lat: 7.40 PHT: 48.00 MVA PHT: 4.58 Decel [place]: 3.50 Aortic Valve AoV Pk Srinivasa: 1.75 AoV Mn Srinivasa: 1.14 AoV VTI: 0.30 AoV Pk Grad: 12.00 Aov Mn Grad: 6.00 KELSEY Cont.VTI: 3.47 LVOT LVOT Pk Srinivasa: 1.46 LVOT Mn Srinivasa: 1.05 LVOT VTI: 0.25 LVOT Pk Grad: 9.00 LVOT Mn Grad: 5.00 LVOT Diam: 2.30 LVOT Area: 4.15 Diastolic Function MV Pk E: 0.58 MV Pk A: 0.33 E/A: 1.70 E'Medial: 5.98 E/E' Med: 9.70 E' Laterial: 7.83 E/E' Lat: 7.40 Right Ventricle TAPSE (mm): 27.20 TVS' Srinivasa: 14.60 Tricuspid Valve TR Pk Srinivasa: 2.17 TR Pk Grad: 19.00 RA Press: 3.00 RVSP: 22.00 Great Vessels Aorta Sinus of Valsalva: 3.45 2.0-3.[address] [place]: 2.59 1.7-3.4 cm Ao Asc: 3.50 2.1-3.4 cm Ao Arch: 2.90 Updated in Other Vendor System with Status of Final Thomas Riley MD electronically signed on 01/15/2025 11:57:11 AM with status of Final
== END ==
LOC: HO.CARD 08:43
DX: I42.9 Cardiomyopathy, unspecified (principal)
CPT/HCPCS: 93306; Q9957

== ENCOUNTER → 2025-01-15 08:46 | Outpatient (BNV) | payer OTHER, SELFPAY | PROVIDERS: Visit Provider Internal Medicine | DX: I42.2 Other hypertrophic cardiomyopathy (principal); I50.30 Unspecified diastolic (congestive) heart failure | CPT/HCPCS: 93306 ==